=== PATIENT | female | born 1975 | race Caucasian/White ===

== ENCOUNTER 2021-03-23 17:36 | Inpatient (IN) | payer SELFPAY ==
[2021-03-23] MEDS ORDERED: CEFEPIME 2 GM VIAL ONE (20:53)
[2021-03-23] MEDS ORDERED: NA CHLORIDE 0.9% 0 ML ONE (20:54)
[2021-03-23] MEDS ORDERED: NA CHLORIDE 0.9% 1,000 ML ONE (20:54)
[2021-03-23] MEDS ORDERED: VANCOMYCIN 1 GM/VIAL ONE (20:54)
[2021-03-23] MEDS ORDERED: ONDANSETRON 4 MG/2 ML VIAL ONE (20:54)
[2021-03-23] MEDS ORDERED: FENTANYL CITR 100 MCG/2 ML ONE (20:54)
[2021-03-23] MEDS ORDERED: NA CHLORIDE 0.9% 250 ML ONE (20:54)
[2021-03-23] MEDS ORDERED: CEFEPIME/SWI 1gm 10 ML ONE (20:55)
[2021-03-23 20:57] LABS: Absolute Lymphocytes (CBC) 1.7 K/uL (0.7-4.9); Basophils % 0.5 % (0-1.3); Hematocrit 31.3 % (36.0-45.0); Lymphocytes % 11.9 % (15.3-44.8); MPV 8.6 fL (7.6-11.3); RBC Red Blood Cell Count 3.62 M/uL (3.86-4.86)
[2021-03-23 21:11] LABS: Protime INR 1.16
[2021-03-23 21:13] LABS: ALT/SGPT 14 U/L (12-78); Alkaline Phosphatase 41 U/L (45-117); BUN Blood Urea Nitrogen 8 mg/dL (7-18); Bicarbonate 28 mmol/L (21-32); Bilirubin Direct < 0.1 mg/dL (0-0.2); Bilirubin Total 0.5 mg/dL (0.2-1.0); Glucose Level 73 mg/dL (74-106); Protein, Total 10.6 g/dL (6.4-8.2); Sodium Level 132 mmol/L (136-145)
[2021-03-23 21:21] LABS: AST/SGOT 24 U/L (15-37); Potassium 3.9 mmol/L (3.5-5.1)
--- NOTE | 2021-03-23 22:29 | ER ---
Nurse's Notes [facility] Name: Shakila Bailey Age: 45 yrs Sex: Female : 1975 Arrival Date: 03/23/2021 Time: 17:40 Bed 27 Private MD: Diagnosis: Cellulitis of buttock;Cutaneous abscess of buttock Presentation: 03/23 17:53 Chief complaint: Patient states: "I think I have an abscess between my vagina and by jd3 back side. it has been getting worse since the .". Coronavirus screen: At this time, the client does not indicate any symptoms associated with coronavirus-19. Ebola Screen: Patient negative for fever greater than or equal to 101.5 degrees Fahrenheit, and additional compatible Ebola Virus Disease symptoms. Initial Sepsis Screen: Does the patient meet any 2 criteria? No. Patient's initial sepsis screen is negative. Does the patient have a suspected source of infection? No. Patient's initial sepsis screen is negative. Risk Assessment: Do you want to hurt yourself or someone else? Patient reports no desire to harm self or others. Onset of symptoms was March 18, 2021. 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 - Social history:: Smoking status: Patient reports the use of cigarette tobacco products, smokes one-half pack cigarettes per day. Screenin:51 Abuse screen: Denies threats or abuse. Denies injuries from another. Nutritional ld1 screening: No deficits noted. Tuberculosis screening: No symptoms or risk factors identified. Fall Risk None identified. Assessment: 19:51 General: Appears in no apparent distress. uncomfortable, Behavior is cooperative, ld1 appropriate for age, anxious. Pain: Complains of pain in gluteal cleft Pain does not radiate. Pain currently is 9 out of 10 on a pain scale. Quality of pain is described as throbbing, Is continuous. Neuro: Level of Consciousness is awake, alert, obeys commands, Oriented to person, place, time, situation. Cardiovascular: Capillary refill < 3 seconds Patient's skin is warm and dry. Respiratory: Airway is patent Respiratory effort is even, unlabored, Respiratory pattern is regular, symmetrical. GI: Abdomen is flat, non-distended, Reports Anal swelling. : No signs and/or symptoms were reported regarding the genitourinary system. EENT: No signs and/or symptoms were reported regarding the EENT system. Derm: No signs and/or symptoms reported regarding the dermatologic system. Musculoskeletal: No signs and/or symptoms reported regarding the musculoskeletal system. 22:45 Reassessment: Patient appears in no apparent distress at this time. Patient and/or em family updated on plan of care and expected duration. Pain level reassessed. Patient is alert, oriented x 3, equal unlabored respirations, skin warm/dry/pink. 23:48 Reassessment: Patient appears in no apparent distress at this time. Patient and/or em family updated on plan of care and expected duration. Pain level reassessed. Patient is alert, oriented x 3, equal unlabored respirations, skin warm/dry/pink. rates pain 8/10 Patient states feeling better. Vital Signs: 17:56 BP 100 / 66; Pulse 88; Resp 17 S; Temp 97.8(TE); Pulse Ox 100% on R/A; Weight 71.94 kg jd3 (R); Height 5 ft. 10 in. (177.80 cm) (R); Pain 10/10; 19:51 BP 106 / 61; Pulse 79; Resp 18; Pulse Ox 95% on R/A; ld1 23:47 BP 117 / 72; Pulse 85; Resp 16; Temp 98.7; Pulse Ox 99% on R/A; Pain 8/10; em 17:56 Body Mass Index 22.76 (71.94 kg, 177.80 cm) jd3 ED Course: 17:40 Patient arrived in ED. ds1 17:54 Triage completed. jd3 17:56 Arm band placed on. jd3 19:47 Charlotte Haider, THEO is Primary Nurse. ld1 19:51 Patient has correct armband on for positive identification. Placed in gown. Bed in low ld1 position. Call light in reach. Side rails up X2. Pulse ox on. NIBP on. Door closed. Noise minimized. Warm blanket given. 19:51 No provider procedures requiring assistance completed. ld1 20:02 Noah Hewitt PA is PHCP. jr8 20:02 Arnel Perera MD is Attending Physician. jr8 20:52 Inserted saline lock: 20 gauge in left antecubital area, using aseptic technique. Blood tt3 collected. 20:52 Initial lab(s) drawn, by me, sent to lab. First set of blood cultures drawn by me, tt3 Second set of blood cultures drawn by me. 22:03 CT Pelvis w cont In Process Unspecified. EDMS 22:27 Samm Hudson DO is Hospitalizing Provider. jr8 23:48 Patient admitted, IV remains in place. em Administered Medications: 20:49 Drug: fentaNYL (PF) 50 mcg Route: IVP; Site: left antecubital; ld1 20:49 Drug: Zofran (Ondansetron) 4 mg Route: IVP; Site: left antecubital; ld1 20:49 Drug: NS 0.9% 1000 ml Route: IV; Rate: 125 ml/hr; Site: left antecubital; ld1 20:50 Drug: vancoMYCIN 1 grams Route: IVPB; Infused Over: 2 hrs; Site: left antecubital; ld1 20:50 Drug: Cefepime 1 grams Route: IVPB; Rate: 200 ml/hr; Infused Over: 30 mins; Site: left ld1 antecubital; 22:45 Drug: Dilaudid (HYDROmorphone) 0.5 mg Route: IVP; Site: left antecubital; em 23:09 Follow up: Response: No adverse reaction; Marked relief of symptoms; Pain is decreased; em RASS: Alert and Calm (0) 23:09 Drug: Zosyn (piperacillin-tazobactam) 3.375 grams Route: IVPB; Infused Over: 60 mins; em Site: left antecubital; Outcome: 22:28 Decision to Hospitalize by Provider. jr8 03/24 00:09 Admitted to Med/surg accompanied by tech, via stretcher, room 205, with chart, Report em called to theo [place] Condition: good Instructed on the need for admit, Demonstrated understanding of instructions. 00:10 Patient left the ED. em Signatures: Dispatcher [employer] Evan Sethi, RN RN Erin Page ds1 Noah Hewitt PA PA jr8 Sachin Palomo RN RN jd3 Ruben Warren tt3 Charlotte Haider RN RN ld1
--- NOTE | 2021-03-23 22:29 | EDPHYS ---
Physician Documentation [facility] Name: Shakila Bailey Age: 45 yrs Sex: Female : 1975 Arrival Date: 03/23/2021 Time: 17:40 Bed 27 Private MD: ED Physician Arnel Perera HPI: 03/23 20:22 This 45 yrs old Female presents to ER via EMS with complaints of Anal jr8 Swelling. 20:22 the patient presents with a swollen area of the gluteal cleft. Description: The jr8 affected area is moderate sized, poorly defined, erythematous, swollen, warm. Onset: The symptoms/episode began/occurred gradually. Possible cause(s): unknown. Associated signs and symptoms: The patient has no apparent associated signs or symptoms. Modifying factors: the symptoms are alleviated by nothing, the symptoms are aggravated by movement, walking, pressure, sitting, squeezing the lesion and expressing the contents, touching. Severity of symptoms: At their worst the symptoms were moderate, in the emergency department the symptoms are unchanged. The patient has not experienced similar symptoms in the past. The patient has not recently seen a physician. 20:23 Patient stated that since the of this month has had swollen tender region to left jr8 buttock. Stated that it is getting worse and more painful . 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 - Social history:: Smoking status: Patient reports the use of cigarette tobacco products, smokes one-half pack cigarettes per day. ROS: 20:23 Eyes: Negative for injury, pain, redness, and discharge, ENT: Negative for injury, jr8 pain, and discharge, Neck: Negative for injury, pain, and swelling, Cardiovascular: Negative for chest pain, palpitations, and edema, Respiratory: Negative for shortness of breath, cough, wheezing, and pleuritic chest pain, Abdomen/GI: Negative for abdominal pain, nausea, vomiting, diarrhea, and constipation, Back: Negative for injury and pain, MS/Extremity: Negative for injury and deformity, Neuro: Negative for headache, weakness, numbness, tingling, and seizure. 20:23 Skin: Positive for erythema, swelling, of the buttocks. Exam: 20:23 Cardiovascular: Regular rate and rhythm with a normal S1 and S2. No gallops, murmurs, jr8 or rubs. Normal PMI, no JVD. No pulse deficits. Respiratory: Lungs have equal breath sounds bilaterally, clear to auscultation and percussion. No rales, rhonchi or wheezes noted. No increased work of breathing, no retractions or nasal flaring. Abdomen/GI: Soft, non-tender, with normal bowel sounds. No distension or tympany. No guarding or rebound. No evidence of tenderness throughout. Back: No spinal tenderness. No costovertebral tenderness. Full range of motion. MS/ Extremity: Pulses equal, no cyanosis. Neurovascular intact. Full, normal range of motion. Neuro: Awake and alert, GCS 15, oriented to person, place, time, and situation. Cranial nerves II-XII grossly intact. Motor strength 5/5 in all extremities. Sensory grossly intact 20:23 Constitutional: The patient appears alert, awake, uncomfortable. 20:23 Skin: cellulitis, that is moderate, confluent, on the left buttock. Vital Signs: 17:56 BP 100 / 66; Pulse 88; Resp 17 S; Temp 97.8(TE); Pulse Ox 100% on R/A; Weight 71.94 kg jd3 (R); Height 5 ft. 10 in. (177.80 cm) (R); Pain 10/10; 19:51 BP 106 / 61; Pulse 79; Resp 18; Pulse Ox 95% on R/A; ld1 23:47 BP 117 / 72; Pulse 85; Resp 16; Temp 98.7; Pulse Ox 99% on R/A; Pain 8/10; em 17:56 Body Mass Index 22.76 (71.94 kg, 177.80 cm) jd3 MDM: 20:02 Patient medically screened. jr8 22:26 Data reviewed: vital signs, nurses notes, lab test result(s), radiologic studies, CT jr8 scan. Data interpreted: Pulse oximetry: on room air is 95 %. Interpretation: normal. Counseling: I had a detailed discussion with the patient and/or guardian regarding: the historical points, exam findings, and any diagnostic results supporting the discharge/admit diagnosis, lab results, radiology results, the need for further work-up and treatment in the hospital. 03/23 20:15 Order name: CBC with Diff [facility] 03/23 20:15 Order name: Basic Metabolic Panel [facility] 03/23 20:15 Order name: Protime (+inr); Complete Time: 21:25 [facility] 03/23 20:15 Order name: Ptt, Activated; Complete Time: 21:25 [facility] 03/23 20:15 Order name: Blood Culture Adult (2) [facility] 03/23 20:15 Order name: Procalcitonin; Complete Time: 21:32 [facility] 03/23 20:15 Order name: LFT's; Complete Time: 21:22 [facility] 03/23 20:15 Order name: CBC with Automated Diff; Complete Time: 21:09 [facility] 03/23 20:15 Order name: Basic Metabolic Panel; Complete Time: 21:22 [facility] 03/23 21:57 Order name: Test, Serum [facility] 03/23 22:16 Order name: SARS-COV-2 RT PCR; Complete Time: 22:17 [facility] 03/23 22:42 Order name: UDS 03/23 20:15 Order name: IV; Complete Time: 20:50 [facility] 03/23 20:16 Order name: CT Pelvis w cont jr8 Administered Medications: 20:49 Drug: fentaNYL (PF) 50 mcg Route: IVP; Site: left antecubital; ld1 20:49 Drug: Zofran (Ondansetron) 4 mg Route: IVP; Site: left antecubital; ld1 20:49 Drug: NS 0.9% 1000 ml Route: IV; Rate: 125 ml/hr; Site: left antecubital; ld1 20:50 Drug: vancoMYCIN 1 grams Route: IVPB; Infused Over: 2 hrs; Site: left antecubital; ld1 20:50 Drug: Cefepime 1 grams Route: IVPB; Rate: 200 ml/hr; Infused Over: 30 mins; Site: left ld1 antecubital; 22:45 Drug: Dilaudid (HYDROmorphone) 0.5 mg Route: IVP; Site: left antecubital; em 23:09 Follow up: Response: No adverse reaction; Marked relief of symptoms; Pain is decreased; em RASS: Alert and Calm (0) 23:09 Drug: Zosyn (piperacillin-tazobactam) 3.375 grams Route: IVPB; Infused Over: 60 mins; em Site: left antecubital; Disposition: 03/24 07:14 Co-signature as Attending Physician, Arnel Perera MD I agree with the assessment and alaina plan of care. Disposition: 03/23/21 22:28 Hospitalization ordered by Samm Hudson for Inpatient Admission. Preliminary diagnosis are Cellulitis of buttock, Cutaneous abscess of buttock. - Bed requested for Telemetry/MedSurg (Inpatient). - Status is Inpatient Admission. em - Condition is Stable. - Problem is new. - Symptoms are unchanged. Signatures: Dispatcher [employer] EDIL Arnel Perera MD MD cha Munoz, Edgar, RN RN Noah Hewitt PA PA jr8 Yuval Lopez, [employer] OPERATOR-C [employer] OPERATOR-Cla1 Evon Anton RN RN tl1 Sachin Palomo RN RN jd3 Dibbern, Lauren, RN RN ld1 Corrections: (The following items were deleted from the chart) 03/23 20:28 20:12 CORONAVIRUS+MR.LAB.BRZ ordered. EDIL EDMS 21:10 20:12 CORONAVIRUS ordered. EDIL EDMS 23:40 22:28 Hospitalization Ordered by Samm Hudson DO for Inpatient Admission. Preliminary tl1 diagnosis is Cellulitis of buttock; Cutaneous abscess of buttock. Bed requested for Telemetry/MedSurg (Inpatient). Status is Inpatient Admission. Condition is Stable. Problem is new. Symptoms are unchanged. jr8 03/24 00:10 03/23 23:40 03/23/2021 22:28 Hospitalization Ordered by Samm Hudson DO for Inpatient em Admission. Preliminary diagnosis is Cellulitis of buttock; Cutaneous abscess of buttock. Bed requested for Telemetry/MedSurg (Inpatient). Status is Inpatient Admission. Condition is Stable. Problem is new. Symptoms are unchanged. tl1
--- NOTE | 2021-03-23 23:02 | P.HP ---
Certification for Inpatient Patient admitted to: Inpatient With expected LOS: >2 Midnights Patient will require the following post-hospital care: None Practitioner: I am a practitioner with admitting privileges, knowledge of patient current condition, hospital course, and medical plan of care. Services: Services provided to patient in accordance with Admission requirements found in Title 42 Section 412.3 of the Code of Federal Regulations Patient History Date of Service: 03/23/21 Primary Care Provider: none Reason for admission: Perirectal abscess History of Present Illness: 45-year-old female with history of HIV, PE he has been off of her medications presents emergency department for rectal pain. Patient reports she has noticed swelling, pain to her left buttocks since the . On exam patient with very large abscess to the left gluteal area. Labs significant for white blood cell count 14.1 hemoglobin 10.6 hematocrit 31.3 sodium [address] abdomen pelvis demonstrates a 10 x 4.8 x 4.9 cm complex air-filled fluid collection/abscess just adjacent left side to the anal verge and vaginal canal/posterior left external labia and medial cheek and left gluteus. Smaller fluid collection within the right medial thigh just lateral to the right external labia measuring 4.2 x 3.2 x 2.6 cm. Case was discussed with General Surgery by ED provider who recommends admission, vanc/Zosyn, NPO and surgical intervention tomorrow. Allergies No Known Allergies Allergy (Unverified 04/25/14 18:30) Home Medications: Atazanavir Sulfate [Reyataz] mg PO 04/26/14 Limivudine 04/26/14 Ritonavir [Norvir] mg PO 04/26/14 Tenofovir Disoproxil Fumarate [Viread] mg PO 04/26/14 Warfarin Sodium [Coumadin] 8 mg PO DAILY #60 tablet 05/01/14 traMADol HCL [Ultram*] 50 mg PO TID PRN #60 tab 05/01/14 - Past Medical/Surgical History Diabetic: No -: HIV 2006 -: Pulmonary embolism/DVT -: Substance abuse/crack -: SPLEEN REMOVED NOVEMBER 2013 -: R WRIST SX Psychosocial/ Personal History: Unemployed, lives with mother - Family History Father -: Heart disease Mother -: Diabetes, Stroke - Social History Smoking Status: Current every day smoker Alcohol use: No CD- Drugs: No Caffeine use: Yes Place of Residence: Home Review of Systems 10-point ROS is otherwise unremarkable General: Malaise Musculoskeletal: Leg Pain, As per HPI Physical Examination - Physical Exam General: Alert, In no apparent distress, Oriented x3 HEENT: Atraumatic, PERRLA, Mucous membr. moist/pink Neck: Supple, 2+ carotid pulse no bruit, No LAD Respiratory: Clear to auscultation bilaterally, Normal air movement Cardiovascular: Regular rate/rhythm, Normal S1 S2 Gastrointestinal: Normal bowel sounds, No tenderness Musculoskeletal: No tenderness Integumentary: Other (Large area of swelling, tenderness, erythema and apparent abscess to the left gluteal area) Neurological: Normal gait, Normal speech, Normal strength at 5/5 x4 extr, Normal tone, Normal affect Lymphatics: No axilla or inguinal lymphadenopathy - Studies Laboratory Data (last 24 hrs) 03/23/21 20:41: PT 13.4 H, INR 1.16, APTT 29.9 03/23/21 20:41: Sodium 132 L, Potassium 3.9, BUN 8, Creatinine 0.71, Glucose 73 L, Total Bilirubin 0.5, AST 24, ALT 14, Alkaline Phosphatase 41 L 03/23/21 20:41: WBC 14.10 H, Hgb 10.6 L, Hct 31.3 L, Plt Count 416 H Assessment and Plan - Plan Assessment 10 x 4.8 x 4.9cm perirectal abscess with 4.2 x 3.2 x 2.6 cm secondary abscess within the right medial thigh HIV with medical noncompliance History of PE/DVT Tobacco abuse Plan 10 x 4.8 x 4.9cm perirectal abscess with 4.2 x 3.2 x 2.6 cm secondary abscess within the right medial thigh: NPO, case discussed with General Surgery who plans for surgical intervention tomorrow. IV vanc/Zosyn for anaerobic coverage. DVT prophylaxis with SCDs. P.r.n. pain medications and anti emetics. Appreciate further input from general surgery. Patient does not appear septic at this time. HIV with medical noncompliance: Will consult infectious disease for recommendations. Patient has been off her medications for some time. History of PE/DVT: Patient discontinue use of anti coagulation on her own. Patient not sure how long she was supposed to take it for, no clinical signs of DVT/PE at this time. Tobacco abuse: Provide with Nicoderm patch, address need for tobacco cessation. Discharge Plan: Home Plan to discharge in: Greater than 2 days - Advance Directives Does patient have a Living Will: No Does patient have a Durable POA for Healthcare: No - Code Status/Comfort Care Code Status Assessed: Yes (Full code) Critical Care: No Time Spent Managing Pts Care (In Minutes): 55
[2021-03-23] MEDS ORDERED: HYDROMORPHONE HCL 0.5 MG/0.5 ML INJ ONE (23:03)
[2021-03-23] MEDS ORDERED: PIPER/TAZO/NS 3.375gm 3.375 GM/100 ML BAG ONE (23:09)
[2021-03-24] MEDS ORDERED: NA CHLORIDE 0.9% 1,000 ML IV SCH ×2 (00:34→05:00)
[2021-03-24] MEDS ORDERED: VANCOMYCIN/NS 1 gm 1 GM/250 ML BAG IVPB SCH (00:34)
[2021-03-24] MEDS ORDERED: ACETAMINOPHEN 500 MG TAB PO PRN (00:34)
[2021-03-24] MEDS ORDERED: ONDANSETRON 4 MG/2 ML VIAL IV PRN (00:34)
[2021-03-24] MEDS ORDERED: VANCOMYCIN 0.25 GM in NA CHLORIDE 0.9% 100 ML IVPB ONE (01:00)
[2021-03-24] MEDS: NICOTINE 21 MG/PAT TD SCH ×2 (01:03→08:08)
[2021-03-24] MEDS ORDERED: NA CHLORIDE 0.9% 100 ML ONE (01:35)
[2021-03-24] MEDS ORDERED: VANCOMYCIN 500 MG/VIAL ONE (01:37)
[2021-03-24] MEDS: HYDROMORPHONE HCL 1 MG/ML INJ IV PRN ×3 (02:20→21:18)
[2021-03-24] MEDS ORDERED: NA CHLORIDE 0.9% 1,000 ML IV ONE ×2 (05:20→07:12)
[2021-03-24 05:54] LABS: Absolute Lymphocytes (CBC) 1.5 K/uL (0.7-4.9); Basophils % 0.4 % (0-1.3); Hematocrit 24.9 % (36.0-45.0); MPV 8.9 fL (7.6-11.3); RBC Red Blood Cell Count 2.89 M/uL (3.86-4.86)
--- NOTE | 2021-03-24 05:58 | P.PN ---
Subjective Date of Service: 03/24/21 Primary Care Provider: none Chief Complaint: Perirectal abscess Subjective: Improving, Doing well Physical Examination - Vital Signs Temperature: 101.6 F Blood Pressure: 82/48 Pulse: 90 Respirations: 16 Pulse Ox (%): 100 - Studies Laboratory Data (last 24 hrs) 03/23/21 20:41: PT 13.4 H, INR 1.16, APTT 29.9 03/23/21 20:41: Sodium 132 L, Potassium 3.9, BUN 8, Creatinine 0.71, Glucose 73 L, Total Bilirubin 0.5, AST 24, ALT 14, Alkaline Phosphatase 41 L 03/23/21 20:41: WBC 14.10 H, Hgb 10.6 L, Hct 31.3 L, Plt Count 416 H Assessment & Plan Discharge Plan: Home Plan to discharge in: Greater than 2 days Physician Review Additional Text: Physical Exam: General: Alert, In no apparent distress, Oriented x3 HEENT: Atraumatic, PERRLA, Mucous membr. moist/pink Neck: Supple, 2+ carotid pulse no bruit, No LAD Respiratory: Clear to auscultation bilaterally, Normal air movement Cardiovascular: Regular rate/rhythm, Normal S1 S2 Gastrointestinal: Normal bowel sounds, No tenderness Musculoskeletal: No tenderness Integumentary: Other (Large area of swelling, tenderness, erythema and apparent abscess to the left gluteal area) Neurological: Normal gait, Normal speech, Normal strength at 5/5 x4 extr, Normal tone, Normal affect Lymphatics: No axilla or inguinal lymphadenopathy Impression: 10 x 4.8 x 4.9cm perirectal abscess with 4.2 x 3.2 x 2.6 cm secondary abscess within the right medial thigh HIV with medical noncompliance History of PE/DVT Anemia of chronic disease with iron and B12 deficiency Tobacco abuse Cocaine abuse Plan: 10 x 4.8 x 4.9cm perirectal abscess with 4.2 x 3.2 x 2.6 cm secondary abscess within the right medial thigh: Patient given another fluid bolus prior to surgery. Continue with IV antibiotic therapy. Spoke with surgery. Surgical intervention to be provided. Likely home in the next 48-72 hr. HIV with medical noncompliance: Await recommendations from Infectious Disease. History of PE/DVT: Patient discontinue use of anti coagulation on her own. Patient not sure how long she was supposed to take it for, no clinical signs of DVT/PE at this time. Will recommend aspirin at discharge. Anemia of chronic disease with iron and B12 deficiency: Will start iron and B12 cyst supplementation. Will monitor hemoglobin. Tobacco abuse: Provide with Nicoderm patch, address need for tobacco cessation. Cocaine abuse: Will address lifestyle modification education. Continue cocaine cessation. DVT prophylaxis: SCD but will transition to Lovenox after surgery Code Status: Full Code Advanced Care Planning-30 min: Home at Discharge Time Spent Managing Pts Care (In Minutes): 55
[2021-03-24 06:20] LABS: ALT/SGPT 7 U/L (12-78); AST/SGOT 11 U/L (15-37); Albumin 1.5 g/dL (3.4-5.0); Alkaline Phosphatase 34 U/L (45-117); BUN Blood Urea Nitrogen 8 mg/dL (7-18); Bicarbonate 26 mmol/L (21-32); Bilirubin Total 0.4 mg/dL (0.2-1.0); Glucose Level 65 mg/dL (74-106); Magnesium 1.5 mg/dL (1.8-2.4); Potassium 3.4 mmol/L (3.5-5.1); Protein, Total 7.9 g/dL (6.4-8.2); Sodium Level 136 mmol/L (136-145)
[2021-03-24] MEDS ORDERED: Magnesium Sulfate 2gm IVPB 2 G/50 ML BAG IV ONE (06:45)
[2021-03-24] MEDS: KCL 20 MEQ/100 mL IVPB 20 MEQ/100 ML BAG IV SCH ×3 (07:00→11:49)
[2021-03-24] MEDS ORDERED: D50W 25 GM/50 ML SYRINGE IV ONE (07:12)
[2021-03-24] MEDS ORDERED: PIPER/TAZO/NS 3.375gm 3.375 GM/100 ML BAG IVPB SCH (08:00)
[2021-03-24] MEDS: D5 0.9 NS 1,000 ML IV SCH ×3 (08:00→21:00)
[2021-03-24] MEDS: THIAMINE 200 MG/2 ML INJ IVP SCH (08:08)
[2021-03-24] MEDS ORDERED: Ringers Lactate 1,000 ML IV ONE (08:54)
[2021-03-24] MEDS: FAMOTIDINE 20 MG/2 ML VIAL IV SCH ×2 (09:00→21:17)
[2021-03-24] MEDS ORDERED: D50W 50 ML IV ONE (09:03)
[2021-03-24] MEDS ORDERED: propofoL 200 MG/20 ML VIAL IV ONE (09:18)
[2021-03-24] MEDS ORDERED: FENTANYL CITR 100 MCG/2 ML ONE (09:18)
[2021-03-24] MEDS ORDERED: MIDAZOLAM HCL 2 MG/2 ML INJ ONE (09:18)
[2021-03-24] MEDS ORDERED: ONDANSETRON 4 MG/2 ML VIAL ONE (09:20)
[2021-03-24] MEDS ORDERED: LIDOCAINE 1% MPF 5 ML VIAL ONE (09:21)
[2021-03-24 09:22] LABS: Ferritin 220.6 ng/mL (8-388)
[2021-03-24] MEDS ORDERED: dexAMETHasone 10 MG/ML VIAL ONE (09:22)
[2021-03-24 09:28] LABS: Urine Appearance CLEAR (Clear); Urine Bilirubin NEGATIVE (Negative); Urine Blood 2+ (Negative); Urine Color YELLOW (Yellow); Urine Glucose NEGATIVE (Negative); Urine Protein 1+ (Negative); Urine Specific Gravity >=1.030 (1.005-1.030)
[2021-03-24 09:33] LABS: Urine Microscopic Reflex ORDER UMIC
[2021-03-24] MEDS ORDERED: SODIUM HYPOCHLORITE 0.25% 473 ML ONE (09:35)
[2021-03-24 09:47] LABS: Urine Bacteria 20-50 /HPF (<20); Urine Trichomonas PRESENT (NONE SEEN)
--- NOTE | 2021-03-24 10:07 | P.OP ---
Preoperative diagnosis: LEFT Buttock / Perirectal Abscess / RIGHT Thigh Abscess Postoperative diagnosis: LEFT Buttock / Perirectal Abscess / RIGHT Thigh Abscess Primary procedure: Incision and Drainage of LEFT Buttock / Perirectal Abscess / RIGHT Thigh Ab Anesthesia: GETA Estimated blood loss: <10cc Specimen: cultures sent Findings: Large LEFT multiloculated abscess into muscle Complications: None Transferred to: Recovery Room Condition: Good
[2021-03-24] MEDS: HYDROMORPHONE HCL 1 MG/ML INJ ONE ×2 (10:27→10:37)
--- NOTE | 2021-03-24 10:50 | RAD REPORT ---
EXAM DESCRIPTION: CT - Pelvis W/Cont - 03/24/2021 6:25 am CLINICAL HISTORY: 45 years, Female, left gluteal cleft swelling extending to perineum COMPARISON: None. TECHNIQUE: Multiple transaxial tomograms of the pelvis were obtained utilizing 5 mm slice thickness at 5 mm interval reconstruction after the administration of IV contrast. 2-D multiplanar reformats in sagittal and coronal plane were generated and reviewed. This exam was performed according to our departmental dose-optimization protocol, which includes auto mated exposure control, adjustment of the mA and/or kV according to patient size and/or use of iterat gayla reconstruction technique. FINDINGS: Several images are compared mild by motion artifact limiting diagnostic value. The visualized portions of the large and small bowel demonstrate to unremarkable. The urinary bladder is unremarkable. The uterus demonstrate to be normal. There are no adnexal masses. There is metallic artifact within the right iliac is muscle just adjacent to the right iliac bone The rectum demonstrate to be unremarkable. Just adjacent/left side to the anal verge and vaginal francisca l/posterior left external labia and medial cheek of the left gluteus there is a large complex air-madhavi led fluid collection/abscess measuring 10 x 4.8 x 4.9 cm on axial image 52 and coronal image 88. Ther e is no definitive extension into the intrapelvic structures. There is thickening of the left levator ani muscle. There increased thickness of the skin/subcutaneous tissue left gluteal cheek/perianal re gion suggesting edema and/or cellulitis. In addition there is a smaller fluid collection within the m edial thigh, just lateral to the right external labia measuring 4.2 x 3.2 x 2.6 cm on axial image 58 and coronal image 46 responding to a second opposite fluid collection/abscess. There is prominent left inguinal lymph node measuring 1.5 cm on image 43 there is prominent distal le ft external iliac lymph node adjacent to the inguinal canal measuring 1.5 cm on image 29. There is a prominent distal right external iliac lymph adjacent to the right inguinal canal measuring 1.4 cm on image 33. IMPRESSION: 10 x 4.8 x 4.9 cm complex air-filled fluid collection-abscess just adjacent-left side to the anal verge and vaginal canal/posterior left external labia and medial cheek of the left gluteus. There is no definitive extension into the intrapelvic structures. Smaller fluid collection within the right medial thigh, just lateral to the right external labia laura uring 4.2 x 3.2 x 2.6 cm. corresponding to a most likely secondary abscess. Electronically signed by: Doc Cerda MD 03/23/2021 10:20 PM CDT Due to temporary technical issues with the PACS/Fluency reporting system, reports are being signed by the in house radiologist without review as a courtesy to ensure prompt reporting. The interpreting r adiologist is fully responsible for the content of the report.
[2021-03-24] MEDS: FOLIC ACID 1 MG in NA CHLORIDE 0.9% 50 ML IV SCH (11:45)
--- NOTE | 2021-03-24 12:10 | CON ---
Date of Consultation: 03/24/2021 Brief History Of Present Illness: The patient is a 45-year-old female with a history of HI V, pulmonary emboli, DVT, who presents for rectal pain beginning several days ago, on approximately t he 19. It was on the left buttock area, now spread slightly to the left labia. She has never had similar episodes before in the past. No sick contacts. No recent travel. She has been noncompliant with her home medications and all medications due to her social situation. Past Medical History: Significant for HIV, pulmonary emboli, DVT. Allergies: NO KNOWN DRUG ALLERGIES. Home Medications: Include Reyataz, lamivudine, Norvir, Viread, Coumadin and tramadol. Past Surgical History: Included a splenectomy in 2014 and wrist surgery. Social History: She agrees to abuse of crack cocaine actively. Cigarettes smoking, yes actively. S he is unemployed and lives with her mother. She denies alcohol. Review of Systems: Ten-point review of systems other than HPI, denies. Physical Examination: Vital Signs: At the time my examination, her BMI is 22.7, her heart rate is 90, blood pressure 82/48 , temperature 101.6, SpO2 of 100% on room air, and respirations 16. General: She is awake, alert, and oriented. Psychiatric: She is appropriate, conversive. HEENT: Normocephalic. Sclerae icteric. Mucous membranes are moist. Oropharynx is clear. Neck: Supple without JVD. Chest: Equal expansion and excursion. Cardiovascular: Regular rate and rhythm. Pulmonary: Clear to auscultation bilaterally. Genitourinary: Focused examination of the buttock area, she has a large left perirectal abscess with extension to the labia, but does not appear to involve the vaginal vault, but it abuts the area. Th ere is no urethral involvement grossly. However, I am unable to get a complete exam due to the patie nt's tenderness of the area as such we will further characterize this after the patient is anesthetiz ed appropriately in the operating room for a more thorough exam. Skin: She has hirsutism otherwise and poor dentition and no other lesions other than multiple skin b reaks, which have been in multiple stages of healing and multiple scars over her body, which are smal l in nature consistent with possible skin popping or multiple skin injuries, which are healed at this point. Laboratory Data: She had a laboratory exam, which reveals a white blood cell count of 10.7, hemoglob in is 8.5, hematocrit of 24.9, platelet count is 359. Her neutrophils are 77%. Her sodium is 136, p otassium 3.4, chloride 104, carbon dioxide 26, BUN 8, creatinine 0.6, glucose was 65. Her magnesium 1.5, calcium 6.6. Her procalcitonin is 0.3. Her serum was negative. She had imaging performed, which included a pelvic CT, read by the [facility] radiologist. An [facility] dictation is not available due to computer system failure. Grossly, it appears that there is a 10 x 4.9 x 4.9 perirectal abscess with a 4.2 x 3.2 x 2.6 cm secondary abscess within the right medial th igh. Assessment And Plan: This is a 45-year-old female who presents with multiple abscesses of the left b uttock and thigh area. 1.IV fluid hydration. 2.Antibiotic coverage. 3.I have explained the risks, benefits, and alternatives of incision and drainage of these multiple abscesses including but not limited to bleeding, infection, damage to surrounding tissues, injury to the vaginal canal, incontinence, need for further surgery, and procedures. The patient agrees to pro ceed as indicated. CORIE/GENNY Voice ID: [id number] Report ID: [id number]
[2021-03-24 12:18] LABS: Barbiturates NEGATIVE (NEGATIVE); Benzodiazepines NEGATIVE (NEGATIVE); Cocaine POSITIVE (NEGATIVE); METHAMPHETAM NEGATIVE (NEGATIVE); Methadone NEGATIVE (NEGATIVE); Opiates NEGATIVE (NEGATIVE); Phencyclidine NEGATIVE (NEGATIVE); THC Cannibis NEGATIVE (NEGATIVE)
[2021-03-24] MEDS: PIPER/TAZO/NS 3.375gm 3.375 GM/100 ML BAG IVPB SCH ×2 (12:20→17:00)
[2021-03-24] MEDS: VANCOMYCIN 1.25 GM in NA CHLORIDE 0.9% 250 ML IVPB SCH (12:21)
[2021-03-24] MEDS ORDERED: POTASSIUM CL SA 10 MEQ TAB PO ONE (13:00)
--- NOTE | 2021-03-24 14:30 | P.CNS ---
Date of Consult: 03/24/21 Primary Care Provider: none Chief Complaint: Perirectal abscess History of Present Illness: Patient is a 45-year-old female with a past medical history of HIV not on antiviral medication, PE, been IV drug abuse history who presented to the emergency department due to rectal pain. Patient states she noticed the swelling and pain to the area since the of this month however the pain progressively got worse resulting in her presenting to the emergency department. An ED patient sound have very large abscess in the left gluteal area. Labs significant for WBC of 14.1, hemoglobin 10.6, hematocrit 31.3, sodium [address] abdomen pelvis showed 10 x 4.8 x 4.9 fluid collection. Patient underwent surgical I and D on 03/24. In addition to rectal abscess patient also has secondary abscess in the right inner thigh. Both wounds currently packed with Dakin's soaked gauze. Patient's. Empirically started on vancomycin and Zosyn. Patient currently denies nausea, vomiting, shortness breath, chest pain. Patient reports pain to rectal area. 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 -: R WRIST SX Psychosocial/ Personal History: Unemployed, lives with mother - Family History Father Medical History: Heart disease Mother Medical History: Diabetes, Stroke - Social History Smoking Status: Current every day smoker Alcohol use: No CD- Drugs: Yes Caffeine use: Yes Place of Residence: Home Review of Systems 10-point ROS is otherwise unremarkable Physical Examination Temp Pulse Resp BP Pulse Ox 99.2 F 80 18 100/56 L 97 03/24/21 12:00 03/24/21 12:00 03/24/21 12:00 03/24/21 12:00 03/24/21 12:00 General: Alert, In no apparent distress, Oriented x3 HEENT: Atraumatic, Normocephalic, PERRLA Neck: Supple, 2+ carotid pulse no bruit Respiratory: Clear to auscultation bilaterally Cardiovascular: No edema, Regular rate/rhythm, Normal S1 S2 Gastrointestinal: Normal bowel sounds, Soft and benign Musculoskeletal: No clubbing, No swelling External genitalia: Other (Perirectal and right medial thigh abscess status post surgical I and D perfoed on 03/24.. Area still has swelling and erythema, a packed with Dakin soaked dressing.) Laboratory Data (last 24 hrs) 03/23/21 20:41: PT 13.4 H, INR 1.16, APTT 29.9 03/23/21 20:41: Sodium 132 L, Potassium 3.9, BUN 8, Creatinine 0.71, Glucose 73 L, Total Bilirubin 0.5, AST 24, ALT 14, Alkaline Phosphatase 41 L 03/23/21 20:41: WBC 14.10 H, Hgb 10.6 L, Hct 31.3 L, Plt Count 416 H Conclusions/Impression: Antibiotics: Vancomycin start: 03/24 stop: -- zosyn start: 03.24 stop: -- Assessment -perirectal and right medial thigh abscess status post I and D performed on 03/24 -HIV not on antiviral therapy -anemia -IV drug abuse Plan: -wound care orders per surgical team. Wound currently being packed with Dakin soaked gauze. Continue IV vancomycin and Zosyn. Keep Zosyn to cover anaerobic bacteria due to patient's HIV history. -patient states that she has not been on any antiviral therapy for the past 2 years. Recommend ordering viral load CD4 count. Patient will need follow up appointment outpatient with infectious disease. -patient has history IV drug abuse. Patient states that she is not currently using however informed me that the last time she did uses about a week and a half ago. Patient would greatly benefit from outpatient rehab. -medical management per primary team -continue monitor CBC and BMP -continue monitor for signs infection Plan of care discussed Dr. Sparks Thank you for consultation
--- NOTE | 2021-03-24 20:22 | OP ---
Date of Procedure: 03/24/2021 Surgeon: Hermes Finch MD, Preoperative Diagnoses: 1.Left buttock/perirectal abscess. 2.Right thigh/perineal abscess. Postoperative Diagnoses: 1.Left buttock/perirectal abscess. 2.Right thigh/perineal abscess. Procedure Performed: 1.Incision and drainage of left buttock/perirectal abscess. 2.Incision and drainage of right thigh abscess. Anesthesia: General endotracheal. Estimated Blood Loss: Less than 10 cc. Specimen: Culture sent for both aerobic and anaerobic speciation. Findings: 1.Large left multiloculated abscess extending into musculature and through musculature. No necrotiz ing fasciitis appearance. The abscess ran adjacent to the labia and in the perirectal position. 2.Right medial thigh abscess was a simple abscess in the subcutaneous position. Complications: None. Disposition: The patient transferred to recovery room in good condition. Procedure In Detail: After informed consent was obtained, the patient was prepped and draped in the usual sterile fashion after adequate anesthesia was achieved. The patient was placed in the lithotom y position. I made an incision over the left gluteal area adjacent to the vaginal orifice down throu gh subcutaneous tissues. Electrocautery was used to dissect down through subcutaneous fat to enter a n abscess cavity, which had a large amount of feculent material inside. This was cultured at this po int. It was opened in its entirety for approximately 6 cm down through subcutaneous tissues. The ex tension of the abscess appeared to involve the deeper planes including muscle. The abscess was found to be multiloculated. At this point, all these loculations were broken up and they extended anterio rly toward the labia and posteriorly toward the rectum and the buttock area. This was drained in its entirety. Electrocautery was used to achieve hemostasis. The area was copiously irrigated multiple times and suctioned out until completely clear. Dakin's soaked Kerlix was then packed into the woun ds tightly after good hemostasis was achieved. I then returned my attention to a right medial thigh/ perilabial abscess. This was opened linearly for approximately 2.5 cm down through subcutaneous tiss ues and immediately encountered an abscess at this point with necrotic fat. This was suctioned out c ompletely as well and irrigated copiously until completely clear. Hemostasis was achieved with elect rocautery. This wound was then packed with Dakin's soaked Kerlix as well and a sterile dressing was placed over top. The patient tolerated the procedure well without evidence of complication and trans ferred to PACU in good condition. All counts were correct at the end of the case. CORIE/GENNY Voice ID: [id number] Report ID: [id number]
[2021-03-24] MEDS: ENSURE ENLIVE 237 ML CAN PO SCH (21:00)
[2021-03-24] MEDS: FERROUS SULFATE 325 MG TAB PO SCH (21:19)
[2021-03-25] MEDS: VANCOMYCIN 1.25 GM in NA CHLORIDE 0.9% 250 ML IVPB SCH (00:13)
[2021-03-25] MEDS: HYDROCODONE/APAP 7.5/325 MG TAB PO PRN ×3 (00:13→16:55)
[2021-03-25] MEDS: PIPER/TAZO/NS 3.375gm 3.375 GM/100 ML BAG IVPB SCH ×2 (00:13→09:00)
[2021-03-25 01:32] VITALS: BMI 22.6
[2021-03-25] MEDS: HYDROMORPHONE HCL 1 MG/ML INJ IV PRN ×2 (04:52→09:25)
[2021-03-25] MEDS ORDERED: DIPHENHYDRAMINE 50 MG/ML VIAL IV ONE (04:59)
--- NOTE | 2021-03-25 06:00 | P.PN ---
Subjective Date of Service: 03/25/21 Primary Care Provider: none Chief Complaint: Perirectal abscess Subjective: Improving, Doing well Physical Examination - Vital Signs Temperature: 97.8 F Blood Pressure: 135/77 Pulse: 76 Respirations: 16 Pulse Ox (%): 99 Assessment & Plan Discharge Plan: Home Plan to discharge in: 24 Hours Physician Review Additional Text: Surgery: Date: 03/24/21 10:06 Preoperative diagnosis: LEFT Buttock / Perirectal Abscess / RIGHT Thigh Abscess Postoperative diagnosis: LEFT Buttock / Perirectal Abscess / RIGHT Thigh Abscess Primary procedure: Incision and Drainage of LEFT Buttock / Perirectal Abscess / RIGHT Thigh Ab Anesthesia: GETA Estimated blood loss: <10cc Specimen: cultures sent Findings: Large LEFT multiloculated abscess into muscle Physical Exam: General: Alert, In no apparent distress, Oriented x3 HEENT: Atraumatic, PERRLA, Mucous membr. moist/pink Neck: Supple, 2+ carotid pulse no bruit, No LAD Respiratory: Clear to auscultation bilaterally, Normal air movement Cardiovascular: Regular rate/rhythm, Normal S1 S2 Gastrointestinal: Normal bowel sounds, No tenderness Musculoskeletal: No tenderness Integumentary: Status post surgical changes to the buttocks region Neurological: Normal gait, Normal speech, Normal strength at 5/5 x4 extr, Normal tone, Normal affect Lymphatics: No axilla or inguinal lymphadenopathy Impression: 10 x 4.8 x 4.9cm perirectal abscess with 4.2 x 3.2 x 2.6 cm secondary abscess within the right medial thigh status post surgery HIV with medical noncompliance History of PE/DVT Anemia of chronic disease with iron and B12 deficiency Tobacco abuse Cocaine abuse Trichomonas Plan: 10 x 4.8 x 4.9cm perirectal abscess with 4.2 x 3.2 x 2.6 cm secondary abscess within the right medial thigh status post surgery: Patient doing well at this time. Spoke with surgery. Patient educated along with family concerning wound care by surgery. Surgery recommends discharge today with close follow-up. HIV with medical noncompliance: Await recommendations from Infectious Disease. History of PE/DVT: Patient discontinue use of anti coagulation on her own. Patient not sure how long she was supposed to take it for, no clinical signs of DVT/PE at this time. Will recommend aspirin at discharge. Anemia of chronic disease with iron and B12 deficiency: Continue with iron and B12 supplementation Tobacco abuse: Provide with Nicoderm patch, address need for tobacco cessation. Cocaine abuse: Will address lifestyle modification education. Continue cocaine cessation. Trichomonas: We will treat with Flagyl. Partner will need to be treated as well. Will address STD prevention DVT prophylaxis: SCD but will transition to Lovenox after surgery Code Status: Full Code Advanced Care Planning-30 min: Home at Discharge Time Spent Managing Pts Care (In Minutes): 55
[2021-03-25 07:05] LABS: Absolute Lymphocytes (CBC) 1.4 K/uL (0.7-4.9); Basophils % 0.1 % (0-1.3); Lymphocytes % 12.2 % (15.3-44.8); MPV 8.3 fL (7.6-11.3); RBC Red Blood Cell Count 2.85 M/uL (3.86-4.86)
[2021-03-25 07:31] LABS: ALT/SGPT 9 U/L (12-78); AST/SGOT 13 U/L (15-37); Albumin 1.5 g/dL (3.4-5.0); Alkaline Phosphatase 35 U/L (45-117); BUN Blood Urea Nitrogen 9 mg/dL (7-18); Bicarbonate 27 mmol/L (21-32); Bilirubin Total 0.1 mg/dL (0.2-1.0); Glucose Level 149 mg/dL (74-106); Potassium 3.9 mmol/L (3.5-5.1); Sodium Level 138 mmol/L (136-145)
[2021-03-25] MEDS ORDERED: POTASSIUM CL SA 10 MEQ TAB PO ONE (08:00)
[2021-03-25] MEDS: ENSURE ENLIVE 237 ML CAN PO SCH (09:00)
[2021-03-25] MEDS ORDERED: DOCUSATE NA 100 MG CAP PO SCH (09:00)
[2021-03-25] MEDS ORDERED: CYANOCOBALAMIN 1,000 MCG TAB PO SCH (09:00)
[2021-03-25] MEDS: FERROUS SULFATE 325 MG TAB PO SCH (10:16)
[2021-03-25] MEDS: THIAMINE 200 MG/2 ML INJ IVP SCH (10:16)
[2021-03-25] MEDS: NICOTINE 21 MG/PAT TD SCH (10:16)
[2021-03-25] MEDS: FOLIC ACID 1 MG in NA CHLORIDE 0.9% 50 ML IV SCH (10:17)
--- NOTE | 2021-03-25 10:24 | P.DS ---
Admission Date: 03/23/21 Discharge Date: 03/25/21 Primary Care Provider: [facility] Disposition: ROUTINE DISCHARGE Discharge Condition: GOOD Reason for Admission: Perirectal abscess Consultations: Surgery-Dr. Finch Procedures: CT Scan: FINDINGS: Several images are compared mild by motion artifact limiting diagnostic value. The visualized portions of the large and small bowel demonstrate to unremarkable. The urinary bladder is unremarkable. The uterus demonstrate to be normal. There are no adnexal masses. There is metallic artifact within the right iliac is muscle just adjacent to the right iliac bone The rectum demonstrate to be unremarkable. Just adjacent/left side to the anal verge and vaginal canal/posterior left external labia and medial cheek of the left gluteus there is a large complex air-filled fluid collection/abscess measuring 10 x 4.8 x 4.9 cm on axial image 52 and coronal image 88. There is no definitive extension into the intrapelvic structures. There is thickening of the left levator ani muscle. There increased thickness of the skin/subcutaneous tissue left gluteal cheek/perianal region suggesting edema and/or cellulitis. In addition there is a smaller fluid collection within the medial thigh, just lateral to the right external labia measuring 4.2 x 3.2 x 2.6 cm on axial image 58 and coronal image 46 responding to a second opposite fluid collection/abscess. There is prominent left inguinal lymph node measuring 1.5 cm on image 43 there is prominent distal left external iliac lymph node adjacent to the inguinal c anal measuring 1.5 cm on image 29. There is a prominent distal right external iliac lymph adjacent to the right inguinal canal measuring 1.4 cm on image 33. IMPRESSION: 10 x 4.8 x 4.9 cm complex air-filled fluid collection-abscess just adjacent-left side to the anal verge and vaginal canal/posterior left external labia and medial cheek of the left gluteus. There is no definitive extension into the intrapelvic structures. Smaller fluid collection within the right medial thigh, just lateral to the right external labia measuring 4.2 x 3.2 x 2.6 cm. corresponding to a most likely secondary abscess. Surgery: Date: 03/24/21 10:06 Preoperative diagnosis: LEFT Buttock / Perirectal Abscess / RIGHT Thigh Abscess Postoperative diagnosis: LEFT Buttock / Perirectal Abscess / RIGHT Thigh Abscess Primary procedure: Incision and Drainage of LEFT Buttock / Perirectal Abscess / RIGHT Thigh Ab Anesthesia: GETA Estimated blood loss: <10cc Specimen: cultures sent Findings: Large LEFT multiloculated abscess into muscle Medical Problem List: 10 x 4.8 x 4.9cm perirectal abscess with 4.2 x 3.2 x 2.6 cm secondary abscess within the right medial thigh status post incision and drainage of left buttocks/perirectal abscess/and right thigh abscess HIV with medical noncompliance History of PE/DVT Anemia of chronic disease with iron and B12 deficiency Tobacco abuse Cocaine abuse Trichomonas Brief History of Present Illness: 45-year-old female with history of HIV, presented with rectal pain. Pain to her left buttocks has been present since March 18. Patient came to the ER for further evaluation. On exam patient with very large abscess to the left gluteal area. Labs significant for white blood cell count 14.1 hemoglobin 10.6 hematocrit 31.3 sodium [address] abdomen pelvis demonstrates a 10 x 4.8 x 4.9 cm complex air-filled fluid collection/abscess just adjacent left side to the anal verge and vaginal canal/posterior left external labia and medial cheek and left gluteus. Smaller fluid collection within the right medial thigh just lateral to the right external labia measuring 4.2 x 3.2 x 2.6 cm. Patient was admitted for further evaluation and treatment. Hospital Course: Patient presented with buttocks pain. CT scan revealed 10 x 4.8 x 4.9 cm complex air-fluid abscess to the left anal verge and gluteus region. A smaller fluid collection also noted to the right medial thigh. Patient was admitted to the hospital for further evaluation and treatment. Patient was seen and evaluated by surgery. Surgical intervention was required. Patient had incision and drainage of the left buttocks/perirectal abscess/right thigh abscess. Patient tolerated procedure well patient patient has done well. So far blood, urine cultures negative. Final cultures pending at discharge. This can be followed up by surgery as an outpatient. Patient has responded well to antibiotic therapy. Surgery has cleared patient for discharge. Surgery was able to provide education to the patient with family member concerning wound care. This will be important in her care. Patient will continue with wound care as recommended by surgery. At discharge the patient will continue with Bactrim DS 1 pill twice daily for 14 days. Patient will need to follow-up with surgery in 2 weeks to follow-up his hospitalization and continue her care. Patient will be provided a limited supply of hydrocodone 1 pill twice daily as needed for pain. Patient may take Tylenol or ibuprofen as needed for pain as well. Follow-up with surgery will be important. Patient with HIV. She has been noncompliant with her medications in the past. Patient has an appointment with HIV clinic here soon. Recommend follow-up with HIV clinic to further address her condition and to be treated as well. Urine culture showed positive for trichomonas. Patient will be sent home with Flagyl 500 mg twice daily for 7 days. Her partner will need to be treated as well. Education on safe sex practices will be provided. Education on trichomonas provided. Patient with anemia chronic disease with noted iron and B12 deficiency. At discharge patient will continue with iron 325 mg 1 pill twice daily and vitamin B12 supplementation daily. Patient will be provided stool softener as well. Recommend to recheck labBMP, iron and B12 in 4 to 6 weeks to monitor her progress. Patient with tobacco abuse. Tobacco cessation education provided. Nicotine patch will be provided to help with cessation. Patient with positive cocaine drug screen. Patient admits to cocaine use. Patient plans to quit. Risks addressed and provided. This can be followed up by PCP. Vital Signs/Physical Exam: Temp Pulse Resp BP Pulse Ox 97.8 F 76 16 135/77 99 03/25/21 10:22 03/25/21 10:22 03/25/21 10:22 03/25/21 10:22 03/25/21 10:22 General: Alert, In no apparent distress, Oriented x3, Cooperative HEENT: Atraumatic Neck: Supple Respiratory: Clear to auscultation bilaterally, Normal air movement Cardiovascular: Normal pulses, Regular rate/rhythm Gastrointestinal: Normal bowel sounds, No masses, No rebound, No guarding Integumentary: Other (Postsurgical changes to the buttocks region.) Neurological: Normal speech, Normal strength at 5/5 x4 extr, Normal tone, Normal affect Laboratory Data at Discharge: WBC 11.70 K/uL (4.3-10.9) H 03/25/21 06:38 Hgb 8.1 g/dL (12.0-15.0) L 03/25/21 06:38 Hct 25.0 % (36.0-45.0) L 03/25/21 06:38 Plt Count 378 K/uL (152-406) 03/25/21 06:38 PT 13.4 SECONDS (9.5-12.5) H 03/23/21 20:41 INR 1.16 03/23/21 20:41 APTT 29.9 SECONDS (24.3-36.9) 03/23/21 20:41 Sodium 138 mmol/L (136-145) 03/25/21 06:38 Potassium 3.9 mmol/L (3.5-5.1) 03/25/21 06:38 BUN 9 mg/dL (7-18) 03/25/21 06:38 Creatinine 0.68 mg/dL (0.55-1.3) 03/25/21 06:38 Glucose 149 mg/dL (74-106) H 03/25/21 06:38 Magnesium 2.0 mg/dL (1.8-2.4) D 03/25/21 06:38 Total Bilirubin 0.1 mg/dL (0.2-1.0) L 03/25/21 06:38 AST 13 U/L (15-37) L 03/25/21 06:38 ALT 9 U/L (12-78) L 03/25/21 06:38 Alkaline Phosphatase 35 U/L (45-117) L 03/25/21 06:38 Home Medications: Cyanocobalamin [Vitamin B-12*] 1,000 mcg PO DAILY #90 tab 03/25/21 Docusate [Colace Cap*] 100 mg PO DAILY #30 cap 03/25/21 Ferrous Sulfate [Ferrous Sulfate*] 325 mg PO BID #60 tab 03/25/21 Folic Acid 1 mg PO DAILY #90 tablet 03/25/21 Hydrocodone Bit/Acetaminophen [[place] 10-325 Tablet] 1 each PO BID PRN #10 tablet 03/25/21 Nicotine [Nicoderm*] 21 mg TD DAILY #1 patch.td24 03/25/21 Sulfamethoxazole/Trimethoprim [Bactrim Ds Tablet] 1 each PO BID #14 tablet 03/25/21 Thiamine HCl 100 mg PO DAILY #90 tablet 03/25/21 metroNIDAZOLE [Flagyl] 500 mg PO BID #14 tablet 03/25/21 New Medications: Sulfamethoxazole/Trimethoprim [Bactrim Ds Tablet] 1 each PO BID #14 tablet Docusate [Colace Cap*] 100 mg PO DAILY #30 cap Ferrous Sulfate [Ferrous Sulfate*] 325 mg PO BID #60 tab metroNIDAZOLE [Flagyl] 500 mg PO BID #14 tablet Folic Acid 1 mg PO DAILY #90 tablet Nicotine [Nicoderm*] 21 mg TD DAILY #1 patch.td24 Hydrocodone Bit/Acetaminophen [[place] 10-325 Tablet] 1 each PO BID PRN #10 tablet PRN Reason: Pain Scale 5-7 (Moderate) Thiamine HCl 100 mg PO DAILY #90 tablet Cyanocobalamin [Vitamin B-12*] 1,000 mcg PO DAILY #90 tab Physician Discharge Instructions: Patient presented with buttocks pain. CT scan revealed 10 x 4.8 x 4.9 cm complex air-fluid abscess to the left anal verge and gluteus region. A smaller fluid collection also noted to the right medial thigh. Patient was admitted to the hospital for further evaluation and treatment. Patient was seen and evaluated by surgery. Surgical intervention was required. Patient had incision and drainage of the left buttocks/perirectal abscess/right thigh abscess. Patient tolerated procedure well patient patient has done well. So far blood, urine cultures negative. Final cultures pending at discharge. This can be followed up with surgery as an outpatient. Patient has responded well to antibiotic therapy. Surgery has cleared patient for discharge. Surgery was able to provide education to the patient with family member concerning wound care. This will be important in her care. Patient will continue with wound care as recommended by surgery. At discharge the patient will continue with Bactrim DS 1 pill twice daily for 14 days. Patient will need to follow-up with surgery in 2 weeks to follow-up his hospitalization and continue her care. Patient will be provided a limited supply of hydrocodone 1 pill twice daily as needed for pain. Patient may take Tylenol or ibuprofen as needed for pain as well. Follow-up with surgery will be important. Patient with HIV. She has been noncompliant with her medications in the past. Patient has an appointment with HIV clinic here soon. Recommend follow-up with HIV clinic to further address her condition and to be treated as well. Urine culture showed positive for trichomonas. Patient will be sent home with Flagyl 500 mg twice daily for 7 days. Her partner will need to be treated as well. Education on safe sex practices will be provided. Education on trichomonas provided. Patient with anemia chronic disease with noted iron and B12 deficiency. At discharge patient will continue with iron 325 mg 1 pill twice daily and vitamin B12 supplementation daily. Patient will be provided stool softener as well. Recommend to recheck labBMP, iron and B12 in 4 to 6 weeks to monitor her progress. Patient with tobacco abuse. Tobacco cessation education provided. Nicotine patch will be provided to help with cessation. Patient with positive cocaine drug screen. Patient admits to cocaine use. Patient plans to quit. Risks addressed and provided. This can be followed up by PCP. Diet: AHA Activity: Ad jahaira Followup: NONE,NONE [Primary Care Provider] - Time spent managing pt's care (in minutes): 55
[2021-03-25] MEDS: FAMOTIDINE 20 MG/2 ML VIAL IV SCH (11:40)
[2021-03-25] MEDS ORDERED: FAMOTIDINE 20 MG/2 ML VIAL IV SCH (12:00)
[2021-03-25 14:15] VITALS: O2SAT 99
[2021-03-25 15:02] VITALS: BP 148/85; TEMP 96.8
[2021-03-26] MEDS ORDERED: SODIUM HYPOCHLORITE 0.25% 473 ML TOP SCH (09:00)
== END 2021-03-25 17:38 | disposition home or self-care (01) | DRG 345 ==
LOC: ER 17:36 → ERHOLD 22:51 → 2ND 03-24 00:12
PROVIDERS: ADMIT Family Medicine; ATTEND Family Medicine
PROC: 0J9L0ZZ Drainage of Right Upper Leg Subcutaneous Tissue and Fascia, Open Approach (ICD-10-PCS; 2021-03-24)
PROC: 0K9P0ZZ Drainage of Left Hip Muscle, Open Approach (ICD-10-PCS; 2021-03-24)
PROC: 0D9P0ZZ Drainage of Rectum, Open Approach (ICD-10-PCS; principal; 2021-03-24 10:45)
DX: K61.1 Rectal abscess (principal); L02.415 Cutaneous abscess of right lower limb; L02.31 Cutaneous abscess of buttock; Z21 Asymptomatic human immunodeficiency virus [HIV] infection status; A59.09 Other urogenital trichomoniasis; D63.8 Anemia in other chronic diseases classified elsewhere; E53.8 Deficiency of other specified B group vitamins; F14.10 Cocaine abuse, uncomplicated; F17.210 Nicotine dependence, cigarettes, uncomplicated; Z91.14 Patient's other noncompliance with medication regimen; Z86.718 Personal history of other venous thrombosis and embolism; Z86.711 Personal history of pulmonary embolism; Z20.822 Contact with and (suspected) exposure to COVID-19
CPT/HCPCS: 36415; 72193; 80048; 80053; 80076; 80202; 80307; 81003; 81015; 82607; 82728; 82947; 83540; 83605; 83735; 84145; 84466; 84703; 85025; 85610; 85730; 87040; 87070; 87075; 87077; 87086; 87088; 87186; 87205; 96374; 96375; 99285; J0692; J1100; J1170; J1200; J2250; J2405; J2543; J2704; J3010; J3370; J3411; J3475; J3480; J7030; J7042; J7050; J7120; Q9967; U0003

== ENCOUNTER 2024-09-13 08:49 | Emergency (ER) | payer BC, OTHER ==
[2024-09-13] MEDS ORDERED: NA CHLORIDE 0.9% 1,000 ML ONE ×2 (09:26→12:03)
[2024-09-13] MEDS ORDERED: ACETAMINOPHEN 500 MG TAB ONE (09:26)
[2024-09-13] MEDS ORDERED: IBUPROFEN 400 MG TAB ONE (09:26)
[2024-09-13] MEDS ORDERED: IBUPROFEN 200 MG TAB PO ONE (09:26)
[2024-09-13 09:31] LABS: Absolute Lymphocytes (CBC) 3.6 K/uL (0.7-4.9); Absolute Monocytes 0.8 K/uL (0.1-1.3); Absolute Neutrophil 3.4 K/uL (1.8-8.0); Basophils % 0.4 % (0-1.3); Eosinophils % 0.2 % (0-4.4); Hematocrit 24.4 % (36.0-45.0); Hemoglobin 7.9 g/dL (12.0-15.0); Lymphocytes % 45.4 % (15.3-44.8); MCHC 32.2 g/dL (32.0-36.0); MCV 99.4 fL (80-100); MPV 6.9 fL (7.6-11.3); Monocytes % 9.8 % (3.3-12.3); Neutrophils % 44.2 % (41.7-73.7); Platelets 827 thou/uL (152-406); RBC Red Blood Cell Count 2.46 M/uL (3.86-4.86); Red Cell Distribution Width 14.6 % (12.1-15.2)
[2024-09-13 09:51] LABS: Anion Gap 10.8 mEq/L (5.0-15.0); Troponin High Sensitivity 11.6 pg/mL (<58.9)
--- NOTE | 2024-09-13 09:51 | RAD REPORT ---
Procedure: Chest Single View HISTORY: Chest pain COMPARISON: April 2024 FINDINGS: A few areas of subsegmental atelectasis are present within the right lung base. The remainder of the lungs appear clear of acute infiltrate. No significant pleural effusion noted. The heart is normal size. IMPRESSION: No acute abnormality is displayed.
[2024-09-13 09:52] LABS: Potassium 3.8 mEq/L (3.5-5.1)
[2024-09-13 10:07] LABS: SARS-CoV-2 Antigen CONTROL BLUE LINE VIS/BG OK; SARS-CoV-2 Antigen Rapid Res Negative (Negative)
--- NOTE | 2024-09-13 13:08 | EDPHYS ---
Physician Documentation [facility] Name: Shakila Bailey Age: 48 yrs Sex: Female : 1975 Arrival Date: 09/13/2024 Time: 08:49 Bed 20 Private MD: ED Physician Roger Motta HPI: 09/13 09:07 This 48 yrs old Female presents to ER via EMS with complaints of Chest Pain, dr5 Cough, General Weakness, Diarrhea. 09:07 Patient is a 48-year-old female with history of HIV controlled with medications coming dr5 in with cough, congestion, fever that is been going on for the past 4 days. Patient reports that sister has been diagnosed with influenza A. Patient reports she has not taken any medication prior to arrival today.. Historical: - Allergies: 08:47 No Known Allergies; db - Home Meds: 08:47 Dapsone Oral [Active]; Biktarvy oral [Active]; db - PMHx: 08:47 HIV; DVT; PE's; db - Immunization history:: Adult Immunizations unknown. - Infectious Disease History:: Denies. - Social history:: Smoking status: unknown. ROS: 09:07 Constitutional: as per hpi dr5 Exam: 09:07 Constitutional: This is a well developed, well nourished patient who is awake, alert, dr5 and in no acute distress. Head/Face: Normocephalic, atraumatic. Eyes: Pupils equal round and reactive to light, extra-ocular motions intact. Lids and lashes normal. Conjunctiva and sclera are non-icteric and not injected. Cornea within normal limits. Periorbital areas with no swelling, redness, or edema. ENT: Nares patent. No nasal discharge, no septal abnormalities noted. Tympanic membranes are normal and external auditory canals are clear. Oropharynx with no redness, swelling, or masses, exudates, or evidence of obstruction, uvula midline. Mucous membranes moist. Chest/axilla: Normal chest wall appearance and motion. Nontender with no deformity. No lesions are appreciated. Cardiovascular: Regular rate and rhythm with a normal S1 and S2. Normal PMI, no JVD. No pulse deficits. Respiratory: Lungs have equal breath sounds bilaterally, clear to auscultation. No rales, rhonchi or wheezes noted. No increased work of breathing, no retractions or nasal flaring. Back: No spinal tenderness. No costovertebral tenderness. Full range of motion. Skin: Hot, dry with normal turgor. Normal color with no rashes, no lesions, and no evidence of cellulitis. Neuro: Awake and alert, GCS 15, oriented to person, place, time, and situation. Cranial nerves II-XII grossly intact. Motor strength 5/5 in all extremities. Sensory grossly intact. Cerebellar exam normal. Normal gait. Vital Signs: 08:47 BP 92 / 45; Pulse 75; Resp 18; Temp 100.3(O); Pulse Ox 95% on R/A; Weight 83.91 kg; db Height 5 ft. 10 in. ; 09:15 BP 96 / 50; Pulse 75; Resp 17; Pulse Ox 97% ; db 10:30 BP 94 / 52; Pulse 71; Resp 16; Pulse Ox 94% ; db 12:05 BP 93 / 65; Pulse 55; Resp 16; Pulse Ox 95% ; db 13:00 BP 94 / 60; Pulse 56; Resp 18; Pulse Ox 96% ; db 08:47 Body Mass Index 26.54 (83.91 kg, 177.8 cm) db MDM: 09:10 Medical Screening Exam initiated dr5 11:57 Differential diagnosis: viral Infection, bacterial infection, URI, pneumonia. Data dr5 reviewed: vital signs, nurses notes. Care significantly affected by the following chronic conditions: HIV. Care significantly affected by the following Social Determinants of Health: Poor access to healthcare and/or lack of insurance, Poor access to transportation, Inadequate housing, Misuse of alcohol and/or drugs, Problems related to employment. Counseling: I had a detailed discussion with the patient and/or guardian regarding the historical points, exam findings, and any diagnostic results supporting the discharge/admit diagnosis, lab results, radiology results, the need for outpatient follow up, for definitive care, a family practitioner, to return to the emergency department if symptoms worsen or persist or if there are any questions or concerns that arise at home. ED course: Patient's labs reviewed. Chest x-ray negative from her pneumonia. Sodium of 128 and corrected with 2 L of fluid. Patient reports not eating any food for the last 2 days. Troponin negative. Will cover patient for pneumonia with Augmentin and azithromycin given patient's history of immunosuppression. White blood cell count normal. Patient agreeable to plan and all questions answered. Return to ER for worsening conditions. Well-appearing on discharge and feeling better with no complaints.. 09/13 09:07 Order name: Strep dr5 09/13 09:01 Order name: Basic Metabolic Panel; Complete Time: 09:52 db 09/13 09:01 Order name: CBC with Diff; Complete Time: 09:32 db 09/13 09:01 Order name: Troponin HS; Complete Time: 09:52 db 09/13 09:07 Order name: SARS RAPID; Complete Time: 10:13 dr5 09/13 09:07 Order name: Influenza Screen (a \T\ B); Complete Time: 10:13 dr5 09/13 09:59 Order name: Throat Culture EDMS 09/13 09:01 Order name: XRAY Chest (1 view); Complete Time: 09:52 db 09/13 09:01 Order name: EKG; Complete Time: 09:01 db 09/13 09:01 Order name: Cardiac monitoring; Complete Time: 09:01 db 09/13 09:01 Order name: EKG - Nurse/Tech; Complete Time: 09:31 db 09/13 09:01 Order name: IV Saline Lock; Complete Time: 09:31 db 09/13 09:01 Order name: Labs collected and sent; Complete Time: 09:31 db 09/13 09:01 Order name: O2 Per Protocol; Complete Time: 09:31 db 09/13 09:01 Order name: O2 Sat Monitoring; Complete Time: 09:31 db EC:12 Rate is 73 beats/min. Rhythm is regular. QRS [place] is Normal. ND interval is normal at dr5 162 msec. QRS interval is normal at 98 msec. QT interval is normal at 400 msec. Administered Medications: Drug: NS 0.9% IV 1000 ml IV at 1000 ml once; to be given as a bolus over 60 minutes db Route: IV; Rate: 1000 ml; Site: right antecubital; Drug: Acetaminophen PO 1000 mg PO once Route: PO; db : Drug: Ibuprofen PO 600 mg PO once Route: PO; db 12: Drug: NS 0.9% IV 1000 ml IV at 1000 ml once; to be given as a bolus over 60 minutes db Route: IV; Rate: 1000 ml; Site: right antecubital; Disposition Summary: 09/13/24 13:08 Discharge Ordered Notes: Location: Home dr5 Condition: Stable dr5 Diagnosis - Dehydration dr5 Followup: dr5 - With: Emergency Department - When: As needed - Reason: Worsening of condition Followup: dr5 - With: Private Physician - When: 1 - 2 days - Reason: Recheck today's complaints, Continuance of care, Re-evaluation by your physician Discharge Instructions: - Discharge Summary Sheet dr5 - Dehydration, Adult dr5 Forms: - Medication Reconciliation Form dr5 - Antibiotic Education dr5 - Patient Portal Instructions dr5 - Leadership Thank You Letter dr5 Prescriptions: - Bromfed DM 2-30-10 mg/5 mL Oral syrup - administer 10 milliliter ORAL route every 6 hours As needed as needed for dr5 allergy symptoms; 240 milliliter; Refills: 0, Product Selection Permitted - azithromycin 250 mg Oral tablet - take 1 dose pack ORAL route as directed on dose pack for 5 days For 250 mg dose dr5 pack: take 500 mg today (day 1), then 250 mg for 4 days (days 2-5); 1 Pack; Refills: 0, Product Selection Permitted - Augmentin 875-125 mg Oral Tablet - take 1 tablet ORAL route every 12 hours for 10 days; 20 tablet; Refills: 0, dr5 Product Selection Permitted Signatures: Dispatcher [employer] EDMS Belinda Calle RN RN db Oei, Benjamin, MD MD bo1 Qamar Mckenna, KILN CAR REPAIRER-C KILN CAR REPAIRER-Cdr5 Corrections: (The following items were deleted from the chart) 09:08 09:08 SARS-COV-2 Antigen Rapid+I.LAB.BRZ ordered. EDMS EDMS 09:08 09:08 Influenza Screen (A \T\ B)+BA.LAB.BRZ ordered. EDMS EDMS 09:08 09:08 Group A Streptococcus Rapid Sc+BA.LAB.BRZ ordered. EDMS EDMS
--- NOTE | 2024-09-13 13:08 | ER ---
Nurse's Notes [facility] Name: Shakila Bailey Age: 48 yrs Sex: Female : 1975 Arrival Date: 09/13/2024 Time: 08:49 Bed 20 Private MD: Diagnosis: Dehydration Presentation: 09/13 08:47 Chief complaint: EMS states: GENERAL WEAKNESS, COUGH, DIFFICULTY BREATHING, DIARRHEA db AND CHEST PAIN X 4 DAYS. COMING FROM HOME. Coronavirus screen: Client denies travel out of the [place] in the last 14 days. At this time, the client does not indicate any symptoms associated with coronavirus-19. Ebola Screen: Patient negative for fever greater than or equal to 101.5 degrees Fahrenheit, and additional compatible Ebola Virus Disease symptoms Patient denies exposure to infectious person. Patient denies travel to an Ebola-affected area in the 21 days before illness onset. No symptoms or risks identified at this time. Initial Sepsis Screen: Does the patient meet any 2 criteria? No. Patient's initial sepsis screen is negative. Does the patient have a suspected source of infection? No. Patient's initial sepsis screen is negative. Risk Assessment: Do you want to hurt yourself or someone else? Patient reports no desire to harm self or others. Onset of symptoms was September 13, 2024. 08:47 Method Of Arrival: EMS: [facility] db 08:47 Acuity: ANTOINE 3 db Triage Assessment: 08:47 General: Appears in no apparent distress. comfortable, Behavior is calm, cooperative. db Pain: Complains of pain in chest. Neuro: Level of Consciousness is awake, alert, obeys commands, Oriented to person, place, time, situation. Cardiovascular: Reports chest pain. Respiratory: Airway is patent Respiratory effort is even, unlabored, Respiratory pattern is regular, symmetrical. Historical: - Allergies: 08:47 No Known Allergies; db - Home Meds: 08:47 Dapsone Oral [Active]; Biktarvy oral [Active]; db - PMHx: 08:47 HIV; DVT; PE's; db - Immunization history:: Adult Immunizations unknown. - Infectious Disease History:: Denies. - Social history:: Smoking status: unknown. Screenin:26 [facility] ED Fall Risk Assessment (Adult) History of falling in the last 3 months, db including since admission No falls in past 3 months (0 pts) Confusion or Disorientation No (0 pts) Intoxicated or Sedated No (0 pts) Impaired Gait No (0 pts) Mobility Assist Device Used No (0 pt) Altered Elimination No (0 pt) Score/Fall Risk Level 0 - 2 = Low Risk Oriented to surroundings, Maintained a safe environment. Abuse screen: Denies threats or abuse. Denies injuries from another. Nutritional screening: No deficits noted. Tuberculosis screening: No symptoms or risk factors identified. Assessment: 08:59 Reassessment: SEE TRIAGE FOR INITIAL ASSESSMENT. Pain: Complains of pain in chest Pain db does not radiate. Pain began gradually, 2-3 days ago. 11:00 Reassessment: Patient appears in no apparent distress at this time. Patient and/or db family updated on plan of care and expected duration. Pain level reassessed. Patient is alert, oriented x 3, equal unlabored respirations, skin warm/dry/pink. General: Appears in no apparent distress. comfortable, Behavior is calm, cooperative. Neuro: Level of Consciousness is awake, alert, obeys commands, Oriented to person, place, time, situation. Respiratory: Airway is patent Respiratory effort is even, unlabored, Respiratory pattern is regular, symmetrical. 12:00 Reassessment: Patient appears in no apparent distress at this time. Patient and/or db family updated on plan of care and expected duration. Pain level reassessed. Patient is alert, oriented x 3, equal unlabored respirations, skin warm/dry/pink. Patient states symptoms have improved. 13:18 Reassessment: Patient appears in no apparent distress at this time. Patient and/or db family updated on plan of care and expected duration. Pain level reassessed. Patient is alert, oriented x 3, equal unlabored respirations, skin warm/dry/pink. Patient states feeling better. Patient states symptoms have improved. Vital Signs: 08:47 BP 92 / 45; Pulse 75; Resp 18; Temp 100.3(O); Pulse Ox 95% on R/A; Weight 83.91 kg; db Height 5 ft. 10 in. ; 09:15 BP 96 / 50; Pulse 75; Resp 17; Pulse Ox 97% ; db 10:30 BP 94 / 52; Pulse 71; Resp 16; Pulse Ox 94% ; db 12:05 BP 93 / 65; Pulse 55; Resp 16; Pulse Ox 95% ; db 13:00 BP 94 / 60; Pulse 56; Resp 18; Pulse Ox 96% ; db 08:47 Body Mass Index 26.54 (83.91 kg, 177.8 cm) db ED Course: 08:47 Arm band placed on Patient placed in an exam room. db 08:54 Patient arrived in ED. db 08:56 Triage completed. db 08:59 [facility] 08:59 Roger Motta MD is Attending Physician. dr5 09:00 Allergy band placed. Bed in low position. Call light in reach. Side rails up X 1. db Client placed on continuous cardiac and pulse oximetry monitoring. NIBP monitoring applied. night monitor on. Pulse ox on. NIBP on. Warm blanket given. Pillow given. 09:00 Patient maintains SpO2 saturation greater than 95% on room air. db 09:24 Initial lab(s) drawn, by me, sent to lab. Inserted saline lock: 22 gauge in right db antecubital area, using aseptic technique. Blood collected. Flushed with 10 mL NS. 09:30 Belinda Calle, RN is Primary Nurse. db 09:42 XRAY Chest (1 view) In Process Unspecified. EDMS 13:26 Provided Education on: DISCHARGE AND FOLLOWUP. db 13:26 No provider procedures requiring assistance completed. IV discontinued, intact, db bleeding controlled, No redness/swelling at site. Administered Medications: 09:29 Drug: NS 0.9% IV 1000 ml IV at 1000 ml once; to be given as a bolus over 60 minutes db Route: IV; Rate: 1000 ml; Site: right antecubital; 09:29 Drug: Acetaminophen PO 1000 mg PO once Route: PO; db 09:29 Drug: Ibuprofen PO 600 mg PO once Route: PO; db 12:07 Drug: NS 0.9% IV 1000 ml IV at 1000 ml once; to be given as a bolus over 60 minutes db Route: IV; Rate: 1000 ml; Site: right antecubital; Medication: 13:26 VIS not applicable for this client. db Outcome: 13:08 Discharge ordered by . dr5 13:18 Discharged to home ambulatory, with family, db 13:26 Condition: stable db 13:26 Discharge instructions given to patient, Instructed on discharge instructions, follow up and referral plans. Prescriptions given X 3, 13:29 Patient left the ED. db Signatures: Dispatcher [employer] Belinda Ryan RN RN Qamar Perry, TANIA-C COREMAKER [id number] Corrections: (The following items were deleted from the chart) : 13:18 Discharged to home db db 13: 13:18 Discharged to home ambulatory, with family, db db 13: 13: BP 94 / 60; Pulse 56bpm; Resp 18bpm; Pulse Ox 96%; db db 13:28 13:18 Discharged to home ambulatory, with family, db db
[2024-09-13 14:00] VITALS: BP 94/60; O2SAT 96
--- NOTE | 2024-09-15 12:04 | EKG ---
Test Date: 2024-09-13 Test Time: 09:12:03 Technical Training Manager: IRON MEASUREMENT RESULTS: Intervals: Rate: 73 CT: 162 QRSD: 98 QT: 400 QTc: 440 Cabery: P: 54 CT: 162 QRS: -52 T: 7 INTERPRETIVE STATEMENTS: Normal sinus rhythm Low voltage QRS Left anterior fascicular block Abnormal ECG Compared to ECG 05/04/2014 19:11:42 Low QRS voltage now present Left anterior fascicular block now present Left-axis deviation no longer present Electronically Signed On 09-15-24 12:02:52 NUTRITIONALIST by Celso Layne
== END 2024-09-13 13:29 | disposition home or self-care (01) ==
LOC: ER 08:49
DX: E86.0 Dehydration (principal); Z21 Asymptomatic human immunodeficiency virus [HIV] infection status; Z11.52 Encounter for screening for COVID-19
CPT/HCPCS: 93005; 87070; 85025; 80048; 36415; 87081; 84484; 87804 ×2; 71045; 99285; 87811; J7030 ×2

== ENCOUNTER 2024-10-04 16:01 | Emergency (ER) | payer OTHER, SELFPAY ==
[2024-10-04] MEDS ORDERED: ONDANSETRON 4 MG/2 ML VIAL ONE (16:38)
[2024-10-04] MEDS ORDERED: FAMOTIDINE 20 MG/2 ML VIAL IV ONE (16:39)
[2024-10-04] MEDS ORDERED: NA CHLORIDE 0.9% 1,000 ML ONE ×2 (16:39→16:47)
[2024-10-04 16:53] LABS: Absolute Basophils 0.1 K/uL (0-0.5); Absolute Eosinophils 0.4 K/uL (0-0.5); Absolute Monocytes 0.6 K/uL (0.1-1.3); Absolute Neutrophil 3.4 K/uL (1.8-8.0); Basophils % 0.9 % (0-1.3); Eosinophils % 5.2 % (0-4.4); Hematocrit 26.6 % (36.0-45.0); Hemoglobin 8.9 g/dL (12.0-15.0); Lymphocytes % 40.4 % (15.3-44.8); MCH 33.9 pg (27.0-35.0); MCHC 33.6 g/dL (32.0-36.0); MPV 7.2 fL (7.6-11.3); Monocytes % 8.6 % (3.3-12.3); Neutrophils % 44.9 % (41.7-73.7); Nucleated Red Blood Cells % 0.3 % (0-0); Platelets 590 thou/uL (152-406); RBC Red Blood Cell Count 2.64 M/uL (3.86-4.86); Red Cell Distribution Width 18.2 % (12.1-15.2)
[2024-10-04 17:02] LABS: PT Prothrombin Time 12.4 SECONDS (9.4-12.5); Protime INR 1.11
[2024-10-04 17:15] LABS: AST/SGOT 17 U/L (15-37); Albumin 2.9 g/dL (3.4-5.0); Albumin/Globulin Ratio 0.4 (1.1-1.8); Alkaline Phosphatase 70 U/L (45-117); Anion Gap 9.9 mEq/L (5.0-15.0); BUN Blood Urea Nitrogen 29 mg/dL (7-18); Bicarbonate 26 mEq/L (21-32); Bilirubin Total 0.2 mg/dL (0.2-1.0); Globulin 7.5 g/dL (2.3-3.5); Glomerular Filtration Rate 44 ml/min (=/>90); Glucose Level 99 mg/dL (74-106); Lipase 58 U/L (13-75); NT PRO-BNP 380 pg/mL (<125); Potassium 3.9 mEq/L (3.5-5.1); Protein, Total 10.4 g/dL (6.4-8.2); Sodium Level 137 mEq/L (136-145); Troponin High Sensitivity 7.9 pg/mL (<58.9)
[2024-10-04 17:18] LABS: ALT/SGPT < 14 U/L (13-56); Bilirubin Direct < 0.2 mg/dL (0-0.2)
--- NOTE | 2024-10-04 18:29 | RAD REPORT ---
Procedure: Chest Single View HISTORY: Cough COMPARISON: 2023 FINDINGS: The lungs appear clear of acute infiltrate. No significant pleural effusion noted. The heart is normal size. IMPRESSION: No acute abnormality is displayed.
--- NOTE | 2024-10-04 19:09 | RAD REPORT ---
EXAM: CT CHEST, ABDOMEN AND PELVIS WITHOUT CONTRAST CLINICAL INDICATION: Chest and abdominal pain TECHNIQUE: CT chest, abdomen and pelvis was performed, without IV contrast, as per department protoco l. Axial, sagittal and coronal reconstructions were obtained. One or more of the following dose reduction techniques were used: Automated exposure control, adjustment of the mA and/or kV according to the patient size, and/or iterative reconstruction. Unless otherwise specified, incidental findings do not require dedicated imaging follow-up. The lack of IV and oral contrast limits evaluation of the mediastinum, niharika, vessels, organs and kesha l. COMPARISON: None FINDINGS: Mild groundglass opacities within the posterior lower lobes probably positional atelectasis. No mediastinal or hilar lymphadenopathy seen. No pleural effusion. No pericardial effusion. Liver, pancreas, adrenals kidneys and bladder appear grossly normal The spleen is absent. Cholecystectomy. There is no evidence of diverticulitis Normal appendix. No adnexal mass Mild chronic compression deformity L1 body. Spondylosis lumbar spine results in spinal stenosis IMPRESSION: No acute abnormalities displayed
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
[2024-10-04] MEDS ORDERED: CEFTRIAXONE 1000 MG/VIAL ONE (19:21)
--- NOTE | 2024-10-04 19:31 | EDPHYS ---
Physician Documentation [facility] Name: Shakila Bailey Age: 49 yrs Sex: Female : 1975 Arrival Date: 10/04/2024 Time: 16:01 Bed 7 Private MD: ED Physician Arnel Perera HPI: 10/04 16:37 This 49 yrs old Female presents to ER via EMS with complaints of alaina Nausea/Vomiting. 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 - Infectious Disease History:: Denies. - Social history:: Smoking status: Patient reports the use of cigarette tobacco products, denies chronic smoking, but will smoke occasionally, Patient uses street drugs, Methamphetamine (Meth). ROS: 19:18 Constitutional: Negative for fever, chills, and weight loss, Eyes: Negative for injury, alaina pain, redness, and discharge, ENT: Negative for injury, pain, and discharge, Neck: Negative for injury, pain, and swelling, Cardiovascular: Negative for chest pain, palpitations, and edema, Respiratory: Negative for shortness of breath, cough, wheezing, and pleuritic chest pain, Back: Negative for injury and pain, : Negative for injury, bleeding, discharge, and swelling, MS/Extremity: Negative for injury and deformity, Skin: Negative for injury, rash, and discoloration, Neuro: Negative for headache, weakness, numbness, tingling, and seizure, Psych: Negative for depression, anxiety, suicide ideation, homicidal ideation, and hallucinations, Allergy/Immunology: Negative for hives, rash, and allergies, Endocrine: Negative for neck swelling, polydipsia, polyuria, polyphagia, and marked weight changes, Hematologic/Lymphatic: Negative for swollen nodes, abnormal bleeding, and unusual bruising, 19:18 Abdomen/GI: Positive for nausea and vomiting, Exam: 19:18 Constitutional: This is a well developed, well nourished patient who is awake, alert, alaina and in no acute distress. Head/Face: Normocephalic, atraumatic. Eyes: Pupils equal round and reactive to light, extra-ocular motions intact. Lids and lashes normal. Conjunctiva and sclera are non-icteric and not injected. Cornea within normal limits. Periorbital areas with no swelling, redness, or edema. ENT: Nares patent. No nasal discharge, no septal abnormalities noted. Tympanic membranes are normal and external auditory canals are clear. Oropharynx with no redness, swelling, or masses, exudates, or evidence of obstruction, uvula midline. Mucous membranes moist. Neck: Trachea midline, no thyromegaly or masses palpated, and no cervical lymphadenopathy. Supple, full range of motion without nuchal rigidity, or vertebral point tenderness. No Meningismus. Chest/axilla: Normal chest wall appearance and motion. Nontender with no deformity. No lesions are appreciated. Cardiovascular: Regular rate and rhythm with a normal S1 and S2. No gallops, murmurs, or rubs. Normal PMI, no JVD. No pulse deficits. Respiratory: Lungs have equal breath sounds bilaterally, clear to auscultation and percussion. No rales, rhonchi or wheezes noted. No increased work of breathing, no retractions or nasal flaring. Abdomen/GI: Soft, non-tender, with normal bowel sounds. No distension or tympany. No guarding or rebound. No evidence of tenderness throughout. Back: No spinal tenderness. No costovertebral tenderness. Full range of motion. Skin: Warm, dry with normal turgor. Normal color with no rashes, no lesions, and no evidence of cellulitis. MS/ Extremity: Pulses equal, no cyanosis. Neurovascular intact. Full, normal range of motion., bilateral aka Neuro: Awake and alert, GCS 15, oriented to person, place, time, and situation. Cranial nerves II-XII grossly intact. Motor strength 5/5 in all extremities. Sensory grossly intact. Cerebellar exam normal. Normal gait. Psych: Awake, alert, with orientation to person, place and time. Behavior, mood, and affect are within normal limits. 19:18 ECG was reviewed by the Attending Physician. 19:27 Musculoskeletal/extremity: DVT Exam: No signs of deep vein thrombosis. no pain, no alaina swelling, no tenderness, negative Homans' sign noted on exam, no appreciated bluish discoloration, no erythema, no increased warmth, Vital Signs: 16:03 BP 144 / 97; Pulse 74; Resp 17; Temp 98; Pulse Ox 97% ; ko1 17:21 BP 131 / 93; Pulse 54; Resp 15; Pulse Ox 99% ; ko1 17:35 BP 136 / 91; Pulse 56; Resp 16; Pulse Ox 99% on R/A; db 18:00 BP 150 / 86; Pulse 48; Resp 16; Pulse Ox 98% on R/A; db 19:18 BP 144 / 84; Pulse 57; Resp 16; Pulse Ox 99% on R/A; ay MDM: 16:03 Medical Screening Exam initiated alaina 19:23 Differential diagnosis: Nonspecific abd pain, gastritis, pancreatitis, diverticulitis, alaina viral gastroenteritis, gastroenteritis. Data reviewed: vital signs, nurses notes, EMS record, lab test result(s), EKG, radiologic studies, CT scan. Consideration of Admission/Observation Escalation of care including admission/observation considered. I considered the following discharge prescriptions or medication management in the emergency department Medications were administered in the Emergency Department. See MAR. Independent interpretation of the following test(s) in the Emergency Department EKG: See my EKG interpretation above. Test considered but Not performed: Ultrasound NO ABD USG. Care significantly affected by the following chronic conditions: HX DVT , PE, DRUG ABUSE, HIV. Counseling: I had a detailed discussion with the patient and/or guardian regarding the historical points, exam findings, and any diagnostic results supporting the discharge/admit diagnosis, lab results, radiology results, the need for outpatient follow up, for definitive care, a family practitioner, a psychiatrist. 10/04 16:18 Order name: Basic Metabolic Panel; Complete Time: 18:04 [facility] 10/04 16:18 Order name: CBC with Diff; Complete Time: 18:04 [facility] 10/04 16:18 Order name: LFT's; Complete Time: 18:04 [facility] 10/04 16:18 Order name: Magnesium; Complete Time: 18:04 [facility] 10/04 16:18 Order name: NT PRO-BNP; Complete Time: 18:04 [facility] 10/04 16:18 Order name: PT-INR; Complete Time: 18:04 [facility] 10/04 16:18 Order name: Troponin HS; Complete Time: 18:04 [facility] 10/04 16:19 Order name: Lipase; Complete Time: 18:04 [facility] 10/04 16:38 Order name: Test, Serum; Complete Time: 19:08 [facility] 10/04 16:18 Order name: XRAY Chest (1 view); Complete Time: 19:08 [facility] 10/04 16:33 Order name: Head C Spine Mpr Wo Con; Complete Time: 19:15 EDMS 10/04 16:35 Order name: Chest Abd Pelvis Wo Con; Complete Time: 19:15 EDMS 10/04 16:18 Order name: Cardiac monitoring; Complete Time: 16:37 [facility] 10/04 16:18 Order name: EKG - Nurse/Tech; Complete Time: 16:49 [facility] 10/04 16:18 Order name: IV Saline Lock; Complete Time: 16:49 [facility] 10/04 16:18 Order name: Labs collected and sent; Complete Time: 16:49 [facility] 10/04 16:18 Order name: O2 Per Protocol; Complete Time: 16:37 [facility] 10/04 16:18 Order name: O2 Sat Monitoring; Complete Time: 16:37 [facility] 10/04 19:41 Order name: PO challenge: JUICE; Complete Time: 19:55 alaina EC:18 Rate is 58 beats/min. Rhythm is regular. QRS Eldridge is Normal. MD interval is normal. QRS alaina interval is normal. QT interval is normal. No Q waves. T waves are Normal. T waves are Peaked. No ST changes noted. Clinical impression: Sinus bradycardia. Interpreted by me. Reviewed by me. Administered Medications: 16:45 Drug: NS 0.9% IV 1000 ml IV at 1000 ml once; to be given as a bolus over 60 minutes ko1 Route: IV; Rate: 1000 ml; Site: right wrist; 19:55 Follow up: Response: No adverse reaction; IV Status: Completed infusion; IV Intake: ay 1000ml 16:45 Drug: Ondansetron IVP 4 mg IVP once; over 2 minutes Route: IVP; Site: right wrist; ko1 19:56 Follow up: Response: No adverse reaction ay 16:45 Drug: Famotidine IVP 20 mg IVP once; dilute with 10 mL 0.9% NaCl; give over 2 minutes ko1 Route: IVP; Site: right wrist; 19:56 Follow up: Response: No adverse reaction ay 16:45 Drug: NS 0.9% IV 1000 ml IV at 1000 ml once; to be given as a bolus over 60 minutes ko1 Route: IV; Rate: 1000 ml; Site: right wrist; 19:53 Follow up: Response: No adverse reaction; IV Status: Completed infusion; IV Intake: bm8 1000ml 19:32 Drug: Rocephin IV 1 grams IV at per protocol once; Given slow IV push per pharmacy ay instructions Route: IV; Rate: per protocol; Site: right hand; 19:53 Follow up: Response: No adverse reaction; IV Status: Completed infusion; IV Intake: [id number] 19:54 Follow up: Response: No adverse reaction ay 19:59 Drug: Ciprofloxacin PO 250 mg PO once Route: PO; ay 19:59 Follow up: Response: No adverse reaction ay Disposition Summary: 10/04/24 19:31 Discharge Ordered Notes: Location: Home alaina Problem: new alaina Symptoms: have improved alaina Condition: Stable alaina Diagnosis - Nausea alaina - Nausea with vomiting, unspecified alaina - Anemia, unspecified alaina - Asymptomatic human immunodeficiency virus [HIV] infection status alaina - Chronic kidney disease, unspecified - INSUFFICENCY alaina Followup: alaina - With: Private Physician - When: 2 - 3 days - Reason: Recheck today's complaints, Continuance of care, Re-evaluation by your physician Followup: alaina - With: Joel Sadler DO - When: 2 - 3 days - Reason: Recheck today's complaints, Re-evaluation by your physician Followup: alaina - With: Rell Fuentes MD - When: 2 - 3 days - Reason: Recheck today's complaints, Re-evaluation by your physician Discharge Instructions: - Discharge Summary Sheet alaina - Anemia alaina - Nausea and Vomiting, Adult alaina - Nausea, Adult alaina - Nausea and Vomiting, Adult, [id number] alaina - Chronic Kidney Disease, Adult alaina - Nausea, Adult, [id number] alaina Forms: - Medication Reconciliation Form alaina - Antibiotic Education alaina - Prescription Opioid Use alaina - Patient Portal Instructions [facility] - Leadership Thank You Letter [facility] Prescriptions: - ondansetron 4 mg Oral Tablet,disintegrating - take 1 tablet ORAL route every 6-8 hours PRN NAUSEA/VOMITING; 20 tablet; alaina Refills: 0, Product Selection Permitted - Cipro 250 mg Oral tablet - take 1 tablet ORAL route every 12 hours; 14 tablet; Refills: 0, Product alaina Selection Permitted - Pepcid 20 mg Oral tablet - take 1 tablet ORAL route every 12 hours for 21 days; 42 tablet; Refills: 0, alaina Product Selection Permitted Signatures: Dispatcher [employer] EDMS Arnel Perera MD MD cha Oliver, Kathy, RN RN ko1 Tony Hilario RN Seun Puri RN [id number] Corrections: (The following items were deleted from the chart) 16:18 16:18 BASIC METABOLIC PANEL+C.LAB.BRZ ordered. EDMS EDMS 16:18 16:18 CBC+H.LAB.BRZ ordered. EDMS EDMS 16:18 16:18 HEPATIC FUNCTION+C.LAB.BRZ ordered. EDMS EDMS 16:18 16:18 MAGNESIUM+C.LAB.BRZ ordered. EDMS EDMS 16:18 16:18 PROBNP+C.LAB.BRZ ordered. EDMS EDMS 16:18 16:18 PROTIME (+INR)+COAG.LAB.BRZ ordered. EDMS EDMS 16:18 16:18 Troponin High Sensitivity+C.LAB.BRZ ordered. EDMS EDMS 16:18 16:18 Chest Single View+RAD.RAD.BRZ ordered. EDMS EDMS 16:18 16:18 Head C Spine Cap Wo Con+CT.RAD.BRZ ordered. EDMS EDMS 16:19 16:19 LIPASE+C.LAB.BRZ ordered. EDMS EDMS 16:19 16:19 Urinalysis+U.LAB.BRZ ordered. EDMS EDMS 16:19 16:19 Urine Culture+BA.LAB.BRZ ordered. EDMS EDMS 16:19 16:19 URINE DRUG SCREEN+UC.LAB.BRZ ordered. EDMS EDMS 16:19 16:19 SALICYLATE+C.LAB.BRZ ordered. EDMS EDMS 16:19 16:19 ACETAMINOPHEN+C.LAB.BRZ ordered. EDMS EDMS 16:19 16:19 ETHANOL+C.LAB.BRZ ordered. EDMS EDMS
--- NOTE | 2024-10-04 19:31 | ER ---
Nurse's Notes [facility] Name: Shakila Bailey Age: 49 yrs Sex: Female : 1975 Arrival Date: 10/04/2024 Time: 16:01 Bed 7 Private MD: Diagnosis: Nausea;Nausea with vomiting, unspecified;Anemia, unspecified;Asymptomatic human immunodeficiency virus [HIV] infection status;Chronic kidney disease, unspecified-INSUFFICENCY Presentation: 10/04 16:03 Chief complaint: EMS states: called out for weakness, nausea and vomiting. Patient had ko1 been "out with friends" and came home vomiting. Coronavirus screen: At this time, the client does not indicate any symptoms associated with coronavirus-19. Ebola Screen: No symptoms or risks identified at this time. Initial Sepsis Screen: Does the patient meet any 2 criteria? No. Patient's initial sepsis screen is negative. Does the patient have a suspected source of infection? No. Patient's initial sepsis screen is negative. Risk Assessment: Do you want to hurt yourself or someone else? Patient reports no desire to harm self or others. Onset of symptoms was October 04, 2024. Care prior to arrival: Medication(s) given: zofran IM. 16:03 Method Of Arrival: EMS: [facility] ko1 16:03 Acuity: ANTOINE 3 ko1 Triage Assessment: 16:05 General: Appears unkempt, Behavior is calm, cooperative, appropriate for age. Pain: ko1 Denies pain. GI: Reports nausea, vomiting. RESEARCH ASSOC: 16:05 LMP N/A - Irregular menses, Not ko1 Historical: - Home Meds: 16:05 Biktarvy oral [Active]; Dapsone Oral [Active]; ko1 - PMHx: 16:05 HIV; DVT; PE's; Drug abuse; ko1 - PSHx: 16:05 Unable to Obtain; ko1 - Immunization history:: Adult Immunizations unknown. - Infectious Disease History:: Denies. - Social history:: Smoking status: Patient reports the use of cigarette tobacco products, denies chronic smoking, but will smoke occasionally, Patient uses street drugs, Methamphetamine (Meth). Screenin:57 [facility] ED Fall Risk Assessment (Adult) History of falling in the last 3 months, db including since admission No falls in past 3 months (0 pts) Confusion or Disorientation No (0 pts) Intoxicated or Sedated No (0 pts) Impaired Gait Yes (1 pt) Mobility Assist Device Used No (0 pt) Altered Elimination No (0 pt) Score/Fall Risk Level 0 - 2 = Low Risk Oriented to surroundings, Maintained a safe environment. Abuse screen: Denies threats or abuse. Denies injuries from another. Nutritional screening: No deficits noted. Tuberculosis screening: No symptoms or risk factors identified. Assessment: 16:35 Reassessment: Patient appears in no apparent distress at this time. Patient and/or db family updated on plan of care and expected duration. Pain level reassessed. Patient is alert, oriented x 3, equal unlabored respirations, skin warm/dry/pink. General: Appears in no apparent distress. comfortable, Behavior is calm, cooperative. Pain: Denies pain. Neuro: Level of Consciousness is awake, alert, obeys commands, Oriented to person, place, time, situation, Speech is normal. Respiratory: Airway is patent Respiratory effort is even, unlabored, Respiratory pattern is regular, symmetrical. GI: Abdomen is flat, non-distended, Reports nausea, vomiting. 16:35 GI: Pt is actively vomiting. db 17:41 Reassessment: Patient appears in no apparent distress at this time. Patient and/or db family updated on plan of care and expected duration. Pain level reassessed. Patient is alert, oriented x 3, equal unlabored respirations, skin warm/dry/pink. 18:09 Reassessment: Patient appears in no apparent distress at this time. Patient and/or db family updated on plan of care and expected duration. Pain level reassessed. Patient is alert, oriented x 3, equal unlabored respirations, skin warm/dry/pink. Patient states symptoms have improved. Vital Signs: 16:03 BP 144 / 97; Pulse 74; Resp 17; Temp 98; Pulse Ox 97% ; ko1 17:21 BP 131 / 93; Pulse 54; Resp 15; Pulse Ox 99% ; ko1 17:35 BP 136 / 91; Pulse 56; Resp 16; Pulse Ox 99% on R/A; db 18:00 BP 150 / 86; Pulse 48; Resp 16; Pulse Ox 98% on R/A; db 19:18 BP 144 / 84; Pulse 57; Resp 16; Pulse Ox 99% on R/A; ay ED Course: 16:03 Patient arrived in ED. ko1 16:03 Arnel Perera MD is Attending Physician. alaina 16:05 Triage completed. ko1 16:05 Arm band placed on right wrist. Patient placed in an exam room, on a stretcher, on ko1 pulse oximetry, Patient notified of wait time. 16:29 XRAY Chest (1 view) In Process Unspecified. EDMS 16:37 Initial lab(s) drawn, by me. Inserted saline lock: 20 gauge in right wrist, using db aseptic technique. Blood collected. Flushed with 10 mL NS. 16:42 mother of patient left here cell phone number so we can call if we need any additional eb information [phone]. 16:48 Belinda Calle, RN is Primary Nurse. db 17:21 Patient has correct armband on for positive identification. Bed in low position. Call ko1 light in reach. Side rails up X2. Provided Education on: labs. Pulse ox on. NIBP on. Door closed. Noise minimized. Lights dimmed. Warm blanket given. Pillow given. 17:21 No provider procedures requiring assistance completed. ko1 17:40 Radiology exam delayed due to test not completed at this time. sm9 18:19 Radiology exam delayed due to lab results not completed at this time. (HCG). sm9 18:51 Head C Spine Mpr Wo Con In Process Unspecified. EDMS 18:52 Chest Abd Pelvis Wo Con In Process Unspecified. EDMS 19:17 Tony Hilario, JOSE RBOERTO is Primary Nurse. ay 19:27 Joel Sadler DO is Referral Physician. alaina 19:28 Rell Fuentes MD is Referral Physician. alaina 20:00 IV discontinued, intact, bleeding controlled, No redness/swelling at site. Pressure ay dressing applied. Administered Medications: 16:45 Drug: NS 0.9% IV 1000 ml IV at 1000 ml once; to be given as a bolus over 60 minutes ko1 Route: IV; Rate: 1000 ml; Site: right wrist; 19:55 Follow up: Response: No adverse reaction; IV Status: Completed infusion; IV Intake: ay 1000ml 16:45 Drug: Ondansetron IVP 4 mg IVP once; over 2 minutes Route: IVP; Site: right wrist; ko1 19:56 Follow up: Response: No adverse reaction ay 16:45 Drug: Famotidine IVP 20 mg IVP once; dilute with 10 mL 0.9% NaCl; give over 2 minutes ko1 Route: IVP; Site: right wrist; 19:56 Follow up: Response: No adverse reaction ay 16:45 Drug: NS 0.9% IV 1000 ml IV at 1000 ml once; to be given as a bolus over 60 minutes ko1 Route: IV; Rate: 1000 ml; Site: right wrist; 19:53 Follow up: Response: No adverse reaction; IV Status: Completed infusion; IV Intake: bm8 1000ml 19:32 Drug: Rocephin IV 1 grams IV at per protocol once; Given slow IV push per pharmacy ay instructions Route: IV; Rate: per protocol; Site: right hand; 19:53 Follow up: Response: No adverse reaction; IV Status: Completed infusion; IV Intake: [id number] 19:54 Follow up: Response: No adverse reaction ay 19:59 Drug: Ciprofloxacin PO 250 mg PO once Route: PO; ay 19:59 Follow up: Response: No adverse reaction ay Medication: 17:21 VIS not applicable for this client. ko1 Intake: 19:53 IV: 50ml; Total: 50ml. bm8 19:53 IV: 1000ml; Total: 1050ml. bm8 19:55 IV: 1000ml; Total: 2050ml. ay Outcome: 19:31 Discharge ordered by . alaina 20:00 Discharged to home via wheelchair, ay 20:00 Condition: stable 20:00 Discharge instructions given to patient, Instructed on discharge instructions, follow up and referral plans. medication usage, safe sex practices, Demonstrated understanding of instructions, follow-up care, medications, Prescriptions given X 3, 20:02 Patient left the ED. ay Signatures: Dispatcher [employer] EDMS Arnel Perera MD MD cha Botello, Elizabeth eb Oliver, Kathy, RN RN ko1 Belinda Calle, JOSE ROBERTO RN Sepideh Haro Brad, RN RN bm8 Tony Hilario RN RN ay
[2024-10-04] MEDS ORDERED: CIPROFLOXACIN HCL 500 MG TAB ONE (19:56)
[2024-10-04 20:30] VITALS: TEMP 98
[2024-10-04 20:34] VITALS: BP 150/86; O2SAT 98
--- NOTE | 2024-10-12 11:12 | EKG ---
Test Date: 2024-10-04 Test Time: 16:35:21 Design Assembler: IRON MEASUREMENT RESULTS: Intervals: Rate: 58 KS: 174 QRSD: 108 QT: 478 QTc: 469 [place]: P: 59 KS: 174 QRS: -51 T: 23 INTERPRETIVE STATEMENTS: Sinus bradycardia Left anterior fascicular block Abnormal ECG Compared to ECG 09/13/2024 09:12:03 Sinus rhythm no longer present Electronically Signed On 10-12-24 11:01:18 LINUX ENGINEER by Celso Layne
== END 2024-10-04 20:02 | disposition home or self-care (01) ==
LOC: ER 16:01
DX: R11.2 Nausea with vomiting, unspecified (principal); D64.9 Anemia, unspecified; N18.9 Chronic kidney disease, unspecified; Z21 Asymptomatic human immunodeficiency virus [HIV] infection status
CPT/HCPCS: 36415; 70450; 71045; 71250; 72125; 74176; 80048; 80076; 83690; 83735; 83880; 84484; 84703; 85025; 85610; 93005; 96361; 96365; 96375; 99285; J0696; J2405; J7030

== ENCOUNTER 2025-05-12 12:09 | Emergency (ER) | payer OTHER, SELFPAY ==
--- NOTE | 2025-05-12 13:02 | RAD REPORT ---
EXAM: Chest Single View HISTORY: 49 years Female CHEST PAIN COMPARISON: 10/04/2024 FINDINGS: LUNGS/PLEURA: The lungs are clear. No pleural effusions or pneumothorax. No pulmonary edema. CARDIAC/MEDIASTINUM: The cardiac silhouette is within normal limits. UPPER ABDOMEN: No significant abnormality. BONES: No acute abnormality. LINES/TUBES/OTHER: N/A IMPRESSION: No evidence of acute cardiopulmonary disease.
[2025-05-12] MEDS ORDERED: DIPHENHYDRAMINE 12.5MG/5ML LIQ ONE (13:13)
[2025-05-12] MEDS ORDERED: LIDOCAINE VISCOUS 2% 10ML ORAL SOLN ONE (13:13)
[2025-05-12] MEDS ORDERED: MAGNES/ALUMIN/SIMET 30ML UCUP ONE (13:13)
[2025-05-12 15:48] LABS: Absolute Lymphocytes (CBC) 0.7 K/uL (0.7-4.9); Hematocrit 38.0 % (36.0-45.0); Hemoglobin 12.9 g/dL (12.0-15.0); MCH 30.2 pg (27.0-35.0); MCHC 33.9 g/dL (32.0-36.0); MCV 89.3 fL (80-100); MPV 9.3 fL (7.6-11.3); Nucleated RBC Absolute Count 0.0 (0-0); Nucleated Red Blood Cells % 0.2 % (0-0); RBC Red Blood Cell Count 4.26 M/uL (3.86-4.86); White Blood Count 4.30 thou/uL (4.3-10.9)
[2025-05-12 16:05] LABS: Anion Gap 8.8 mEq/L (5.0-15.0); BUN Blood Urea Nitrogen 15.0 mg/dL (7-18); Glucose Level 76.0 mg/dL (74-106); Potassium 3.8 mEq/L (3.5-5.1); Troponin High Sensitivity 4.1 pg/mL (<58.9)
--- NOTE | 2025-05-12 16:25 | EDPHYS ---
Physician Documentation [facility] Name: Shakila Bailey Age: 49 yrs Sex: Female : 1975 Arrival Date: 05/12/2025 Time: 12:09 Bed 18 Private MD: ED Physician Darryn Ponce HPI: 05/12 16:22 This 49 yrs old Female presents to ER via EMS with complaints of Sore Throat, Chest kb Pain. 16:22 Patient is a 49-year-old female who presents for sore throat that started 2 weeks ago kb and a cough that has been ongoing for several weeks but is now causing her pain when she coughs. Denies fever, shortness of breath. States she was seen at [facility] yesterday and given a shot of something but not sure what. Was not sent home with any prescriptions.. 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 - Infectious Disease History:: Denies. - Social history:: Smoking status: unknown Patient uses street drugs. ROS: 15:02 Constitutional: As per HPI kb Exam: 15:01 ECG was reviewed by the Attending Physician. kb 16:18 Constitutional: This is a well developed, well nourished patient who is awake, alert, kb and in no acute distress. Head/Face: Normocephalic, atraumatic. Cardiovascular: Regular rate Respiratory: Respirations even and unlabored. No increased work of breathing. Talking in full sentences Skin: Warm, dry with normal turgor. Normal color. MS/ Extremity: Pulses equal, no cyanosis. Neurovascular intact. Full, normal range of motion. Neuro: Awake and alert, GCS 15, oriented to person, place, time, and situation. 16:18 ENT: Mouth: Oral mucosa: noted to have obvious thrush, Vital Signs: 12:25 BP 119 / 72; Pulse 79; Resp 18; Pulse Ox 100% on R/A; Weight 68.04 kg; Height 5 ft. 10 kj2 in. ; 13:30 BP 87 / 68; Pulse 77; Resp 18; Pulse Ox 100% ; kj2 14:40 BP 90 / 70; Pulse 72; Resp 18; Pulse Ox 98% on R/A; kj2 15:40 BP 124 / 79; Pulse 73; Resp 18; Pulse Ox 100% on R/A; kj2 16:57 BP 122 / 78; Pulse 75; Resp 18; Temp 97.9; Pulse Ox 100% on R/A; kj2 12:25 Body Mass Index 21.52 (68.04 kg, 177.8 cm) kj2 MDM: 12:15 Medical Screening Exam initiated kb 13:17 Data reviewed: vital signs, nurses notes. Historians other than the Patient: EMS: tra [facility]. mother, Shakila Bailey, [phone]. 16:23 Differential diagnosis: apthous stomatitis, apthous ulcer, pharyngitis, tonsillitis, kb viral syndrome Strep, thrush. Counseling: I had a detailed discussion with the patient and/or guardian regarding the historical points, exam findings, and any diagnostic results supporting the discharge/admit diagnosis, lab results, radiology results, the need for outpatient follow up, a family practitioner, to return to the emergency department if symptoms worsen or persist or if there are any questions or concerns that arise at home. 05/12 12:16 Order name: Basic Metabolic Panel; Complete Time: 16:05 kb 05/12 12:16 Order name: CBC with Diff; Complete Time: 15:50 kb 05/12 12:16 Order name: Troponin HS; Complete Time: 16:05 kb 05/12 12:16 Order name: Group A Streptococcus Rapid; Complete Time: 13:11 kb 05/12 13:12 Order name: Throat Culture EDVT 05/12 12:16 Order name: XRAY Chest (1 view); Complete Time: 13:03 kb 05/12 12:16 Order name: Cardiac monitoring; Complete Time: 16:59 kb 05/12 12:16 Order name: EKG - Nurse/Tech; Complete Time: 16:59 kb 05/12 12:16 Order name: IV Saline Lock; Complete Time: 16:59 kb 05/12 12:16 Order name: Labs collected and sent; Complete Time: 16:59 kb 05/12 12:16 Order name: O2 Per Protocol; Complete Time: 16:59 kb 05/12 12:16 Order name: O2 Sat Monitoring; Complete Time: 16:59 kb 05/12 13:30 Order name: Labs - recollect needed: recollect light green top; Complete Time: 16:59 bd 05/12 14:38 Order name: Vital Signs; Complete Time: 15:53 kb EC:01 Rate is 70 beats/min. Rhythm is regular. QRS [place] is Normal. AL interval is normal at kb 150 msec. QRS interval is normal at 100 msec. QT interval is normal at 438 msec. Administered Medications: 13:17 Drug: GI Cocktail without - (Maalox PO 30 ml, Lidocaine Mucous Membrane 2 % 15 kj2 ml) PO once; mix with benadryl, swish and spit Route: PO; 16:59 Follow up: Response: No adverse reaction kj2 13:17 Drug: diphenhydrAMINE PO 12.5 mg PO once; mix with gi cocktail Route: PO; kj2 16:59 Follow up: Response: No adverse reaction kj2 15:53 Drug: NS 0.9% IV 1000 ml IV at 1000 ml once; to be given as a bolus over 60 minutes kj2 Route: IV; Rate: 1000 ml; Site: right antecubital; 16:59 Follow up: IV Status: Completed infusion; IV Intake: 1000ml kj2 Disposition: 18:44 I was immediately available on-site in the Emergency Department for consultation in the ms3 care of the patient. Disposition Summary: 05/12/25 16:24 Discharge Ordered Notes: Location: Home kb Condition: Stable kb Diagnosis - Candidal stomatitis kb Followup: kb - With: Emergency Department - When: As needed - Reason: Worsening of condition Followup: kb - With: Private Physician - When: 2 - 3 days - Reason: Recheck today's complaints, Continuance of care, Re-evaluation by your physician Discharge Instructions: - Oral Thrush, Adult, [id number] kb - Discharge Summary Sheet kj2 Forms: - Medication Reconciliation Form kb - Antibiotic Education kb - Prescription Opioid Use kb - Patient Portal Instructions kb - Leadership Thank You Letter kb - SBAR form kj2 Prescriptions: - Nystatin 100,000 unit/mL Oral Suspension - take 5 milliliters ORAL route every 6 hours; 120 milliliter; Refills: 0, kb Product Selection Permitted Signatures: Dispatcher [employer] EDRadha Horne BRANCH SPECIALIST-C BRANCH SPECIALIST-Ckb Cindi Mckinley Marcus, DO ms3 Yael Lewis, RN RN kj2 Corrections: (The following items were deleted from the chart) 12:17 12:17 BASIC METABOLIC PANEL+C.LAB.BRZ ordered. EDMS EDMS 12:17 12:17 CBC+H.LAB.BRZ ordered. EDMS EDMS 12: 12:17 Troponin High Sensitivity+C.LAB.BRZ ordered. EDMS EDMS 12:17 12:17 Group A Streptococcus Rapid Sc+I.LAB.BRZ ordered. EDMS EDMS 12:17 12:17 Chest Single View+RAD.RAD.BRZ ordered. EDMS EDMS
--- NOTE | 2025-05-12 16:25 | ER ---
Nurse's Notes [facility] Name: Shakila Bailey Age: 49 yrs Sex: Female : 1975 Arrival Date: 05/12/2025 Time: 12:09 Bed 18 Private MD: Diagnosis: Candidal stomatitis Presentation: 05/12 12:23 Chief complaint: EMS states: sore throat x 2 weeks, chest hurts when coughing. kj2 Coronavirus screen: Client denies travel out of the [place] in the last 14 days. 12:23 Method Of Arrival: EMS: [facility] kj2 12:25 Ebola Screen: No symptoms or risks identified at this time. Initial Sepsis Screen: Does kj2 the patient meet any 2 criteria? No. Patient's initial sepsis screen is negative. Does the patient have a suspected source of infection? No. Patient's initial sepsis screen is negative. Risk Assessment: Do you want to hurt yourself or someone else? Patient reports no desire to harm self or others. Onset of symptoms was April 26, 2025. 12:25 Acuity: ANTOINE 3 kj2 Triage Assessment: 12:28 General: Appears in no apparent distress. Behavior is cooperative. Pain: Complains of kj2 pain in throat, chest Pain does not radiate. EENT: Reports throat. Neuro: Level of Consciousness is awake, alert, obeys commands. Cardiovascular: Patient's skin is warm and dry. Respiratory: Airway is patent Respiratory effort is unlabored. GI: No signs and/or symptoms were reported involving the gastrointestinal system. : No signs and/or symptoms were reported regarding the genitourinary system. 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 - Infectious Disease History:: Denies. - Social history:: Smoking status: unknown Patient uses street drugs. Screenin:25 [facility] ED Fall Risk Assessment (Adult) History of falling in the last 3 months, kj2 including since admission No falls in past 3 months (0 pts) Confusion or Disorientation No (0 pts) Intoxicated or Sedated No (0 pts) Impaired Gait No (0 pts) Mobility Assist Device Used No (0 pt) Altered Elimination No (0 pt) Score/Fall Risk Level 0 - 2 = Low Risk Maintained a safe environment, Hourly rounding (assess needs \T\ fall precautionary measures) done. Abuse screen: Denies threats or abuse. Denies injuries from another. Nutritional screening: No deficits noted. Tuberculosis screening: No symptoms or risk factors identified. Assessment: 12:29 General: see triage assessment. kj2 12:30 EENT: Throat is pink. kj2 13:30 Reassessment: Patient appears in no apparent distress at this time. Patient and/or kj2 family updated on plan of care and expected duration. Pain level reassessed. Patient is alert, oriented x 3, equal unlabored respirations, skin warm/dry/pink. 15:30 Reassessment: Patient appears in no apparent distress at this time. Patient and/or kj2 family updated on plan of care and expected duration. Pain level reassessed. Patient is alert, oriented x 3, equal unlabored respirations, skin warm/dry/pink. 16:57 Reassessment: Patient appears in no apparent distress at this time. Patient and/or kj2 family updated on plan of care and expected duration. Pain level reassessed. Patient is alert, oriented x 3, equal unlabored respirations, skin warm/dry/pink. Vital Signs: 12:25 BP 119 / 72; Pulse 79; Resp 18; Pulse Ox 100% on R/A; Weight 68.04 kg; Height 5 ft. 10 kj2 in. ; 13:30 BP 87 / 68; Pulse 77; Resp 18; Pulse Ox 100% ; kj2 14:40 BP 90 / 70; Pulse 72; Resp 18; Pulse Ox 98% on R/A; kj2 15:40 BP 124 / 79; Pulse 73; Resp 18; Pulse Ox 100% on R/A; kj2 16:57 BP 122 / 78; Pulse 75; Resp 18; Temp 97.9; Pulse Ox 100% on R/A; kj2 12:25 Body Mass Index 21.52 (68.04 kg, 177.8 cm) kj2 ED Course: 12:15 Patient arrived in ED. kb 12:15 [facility] kb 12:15 Darryn Ponce DO is Attending Physician. kb 12:22 Yael Lewis, RN is Primary Nurse. kj2 12:25 Patient has correct armband on for positive identification. Bed in low position. Call kj2 light in reach. Provided Education on: call light. 12:25 Arm band placed on Patient placed in the treatment room. kj2 12:59 XRAY Chest (1 view) In Process Unspecified. EDMS 13:09 Triage completed. kj2 15:40 Inserted saline lock: 20 gauge in right antecubital area, using aseptic technique. hb Blood collected. Flushed with 10 mL NS. 16:58 No provider procedures requiring assistance completed. IV discontinued, intact, kj2 bleeding controlled, No redness/swelling at site. Pressure dressing applied. Administered Medications: 13:17 Drug: GI Cocktail without - (Maalox PO 30 ml, Lidocaine Mucous Membrane 2 % 15 kj2 ml) PO once; mix with benadryl, swish and spit Route: PO; 16:59 Follow up: Response: No adverse reaction kj2 13:17 Drug: diphenhydrAMINE PO 12.5 mg PO once; mix with gi cocktail Route: PO; kj2 16:59 Follow up: Response: No adverse reaction kj2 15:53 Drug: NS 0.9% IV 1000 ml IV at 1000 ml once; to be given as a bolus over 60 minutes kj2 Route: IV; Rate: 1000 ml; Site: right antecubital; 16:59 Follow up: IV Status: Completed infusion; IV Intake: 1000ml kj2 Medication: 13:10 VIS not applicable for this client. kj2 Intake: 16:59 IV: 1000ml; Total: 1000ml. kj2 Outcome: 16:24 Discharge ordered by . kb 16:58 Discharged to home ambulatory, kj2 16:58 Condition: stable 16:58 Discharge instructions given to patient, Instructed on discharge instructions, follow up and referral plans. Demonstrated understanding of instructions, follow-up care, 17:18 Patient left the ED. kj2 Signatures: Dispatcher [employer] EDMS Radha Ivy, Brandee Mac RN RN Yael Lewis, JOSE ROBERTO RN kj2
[2025-05-12 17:27] VITALS: O2SAT 100
[2025-05-12 17:28] VITALS: BP 122/78; TEMP 97.9
== END 2025-05-12 17:18 | disposition home or self-care (01) ==
LOC: ER 12:09
DX: B37.0 Candidal stomatitis (principal); F19.10 Other psychoactive substance abuse, uncomplicated; Z21 Asymptomatic human immunodeficiency virus [HIV] infection status; Z86.711 Personal history of pulmonary embolism; Z86.718 Personal history of other venous thrombosis and embolism
CPT/HCPCS: 36415; 71045; 80048; 84484; 85025; 87070; 93005; 96360; 99284; Q0163